=== PATIENT | male | born 1980 | race Caucasian/White ===

== ENCOUNTER 2017-07-28 21:21 | Inpatient (IN) | payer OTHER ==
[~2017-07-28] VITALS: Ht 167.6 cm; Wt 77.2 kg
[2017-07-28] MEDS ORDERED: SODIUM CHLORIDE 0.9% 1000ML 1,000 ML, SODIUM CHLORIDE 0.9% 1000ML 1,000 ML IV ONE (21:45)
[2017-07-28] MEDS ORDERED: PIPERACILLIN/TAZOBACTAM 4.5 GM/100ML D5W IV STA (21:45)
[2017-07-28] MEDS ORDERED: DAPTOMYCIN IV ONE (21:45)
[2017-07-28] MEDS ORDERED: SODIUM CHLORIDE 0.9% IV ONE (21:45)
[2017-07-28 22:38] LABS: HEMATOCRIT 34.2 % (42-52); HEMOGLOBIN 11.1 g/dL (14.0-18.0); MEAN CELL VOLUME 81.2 fL (80-100); MEAN CORPUSCULAR HEMOGLOBIN 26.4 pg (25-34); MEAN CORPUSCULAR HGB CONC 32.5 g/dl (32-36); MEAN PLATELET VOLUME 8.6 fL (7.4-10.4); PLATELET COUNT 535 K/uL (130-400); RED CELL DISTRIBUTION WIDTH CV 14.2 % (11.5-14.5); RED CELL DISTRIBUTION WIDTH SD 41.9 fL (36.4-46.3); WHITE BLOOD COUNT 15.42 K/uL (4.8-10.8)
[2017-07-28] MEDS ORDERED: IBUP-1050 PO (22:47)
--- NOTE | 2017-07-28 22:47 | DIAGNOSTIC IMAGING REPORT ---
CHEST ONE VIEW PORTABLE CLINICAL HISTORY: IVDA. Hemoptysis hemoptysis COMPARISON STUDY: No previous studies for comparison. FINDINGS: The bones soft tissues and hemidiaphragms are normal. The cardiomediastinal silhouette is normal. The lungs are clear. The pulmonary vasculature is normal. IMPRESSION: Negative chest. The above report was generated using voice recognition software. It may contain grammatical, syntax or spelling errors. Electronically signed by: London Palomo M.D. 07/28/2017 10:46 PM Dictated Date/Time: 07/28/2017 10:45 PM
--- NOTE | 2017-07-28 22:48 | DIAGNOSTIC IMAGING REPORT ---
R FOREARM 2 VIEWS ROUTINE CLINICAL HISTORY: IVDA to right arm with infection infection COMPARISON: None. DISCUSSION: The bones and joint spaces appear intact. There is no evidence of fracture, dislocation or bony disease. Mild soft tissue edema IMPRESSION: Mild soft tissue edema. No acute bony abnormality. The above report was generated using voice recognition software. It may contain grammatical, syntax or spelling errors. Electronically signed by: London Palomo M.D. 07/28/2017 10:47 PM Dictated Date/Time: 07/28/2017 10:46 PM
[2017-07-28 23:00] LABS: ALT/SGPT 36 U/L (12-78); AST/SGOT 23 U/L (15-37); BLOOD UREA NITROGEN 7 mg/dl (7-18); CALCIUM 8.5 mg/dl (8.5-10.1); CARBON DIOXIDE 27 mmol/L (21-32); CREATININE 0.89 mg/dl (0.60-1.40); GLUCOSE 142 mg/dl (70-99); LIPASE 74 U/L (73-393); POTASSIUM 3.8 mmol/L (3.5-5.1); SODIUM 136 mmol/L (136-145)
[2017-07-28 23:02] LABS: ALKALINE PHOSPHATASE 98 U/L (45-117); CKMB < 0.5 ng/ml (0.5-3.6)
[2017-07-28] MEDS ORDERED: OPTIRAY 320 IV PRN (23:15)
[2017-07-28] MEDS ORDERED: KETOROLAC TROMETHAMINE 30 MG/ML VIAL IV STA (23:56)
--- NOTE | 2017-07-29 00:26 | EMERGENCY ROOM VISIT NOTE ---
History First contact with patient: 21:37 Chief Complaint: OTHER COMPLAINT Stated Complaint: TROUBLE BREATHING,SPITTING BLOOD,INFECTED WOUND History of Present Illness The patient is a 37 year old male who presents to the Emergency Room with complaints of fever, abscess, and hemoptysis. The patient is an IV drug abuser , and reports that about 2 weeks ago he injected methamphetamine into his right forearm. He subsequently developed an abscess that he has been tending for at home. He states that he did drain the abscess, but continues to have redness and pain in this area. The patient started with fever 2 or 3 days ago, and today he is having chest pain and some scant hemoptysis. The patient does not report additional medical disease. Activity worsens symptoms. No recent travel history. He does not report abdominal pain or calf pain. He rates his overall discomfort a 9/10. Review of Systems More than 10 systems were reviewed and otherwise negative with the exception of history of present illness. Past Medical/Surgical History Medical Problems: (1) Abscess of arm, right IV drug abuse Family History No pertinent family history Social History Smoking Status: Never Smoker Drug Use: other Housing Status: lives with family Current/Historical Medications Scheduled Ibuprofen (Advil), 600 MG PO Q6H Physical Exam Vital Signs Date Time Temp Pulse Resp B/P (MAP) Pulse Ox O2 Delivery O2 Flow Rate FiO2 07/28/17 23:06 92 116/62 94 Room Air 07/28/17 21:50 96 Room Air 07/28/17 21:44 105 07/28/17 21:29 38.1 108 18 117/63 97 Room Air Physical Exam VITALS: Vitals are noted on the nurse's note and reviewed by myself. Vital signs with fever and tachycardia GENERAL: Moderate ill-appearing male who is overall cooperative with the examination NECK: Supple without nuchal rigidity. No lymphadenopathy. No thyromegaly. Cervical spine is nontender. HEART: Tachycardic rate with regular rhythm. No obvious murmurs appreciated LUNGS: Tachypneic without wheezing or rhonchi throughout MUSCULOSKELETAL: There is an area along the right volar forearm consistent with IV drug use and subsequent ulceration. This area is very indurated without gross purulence. There are 2 large open wounds each measuring about 2.0 cm in diameter here. No obvious lymphangitic streaking. Additionally in the left AC is a healing cellulitis without obvious abscess on exam. NEURO: Patient was alert and oriented to person place and time. CN II through XII grossly intact Medical Decision & Procedures ER Provider Diagnostic Interpretation: Preliminary Findings Only See Final Report For Complete Findings CTA CHEST: No evidence of pulmonary embolism or aortic dissection. Mild peribronchial thickening and nonspecific patchy ground glass densities. Tiny pulmonary nodules. No pneumothorax or pleural effusion. Mild esophageal wall thickening. Low density structure in the upper left kidney, query caliectasis. Small hepatic hypodensity in the region of the falciform ligament, incompletely imaged. CHEST ONE VIEW PORTABLE CLINICAL HISTORY: IVDA. Hemoptysis hemoptysis COMPARISON STUDY: No previous studies for comparison. FINDINGS: The bones soft tissues and hemidiaphragms are normal. The cardiomediastinal silhouette is normal. The lungs are clear. The pulmonary vasculature is normal. IMPRESSION: Negative chest. R FOREARM 2 VIEWS ROUTINE CLINICAL HISTORY: IVDA to right arm with infection infection COMPARISON: None. DISCUSSION: The bones and joint spaces appear intact. There is no evidence of fracture, dislocation or bony disease. Mild soft tissue edema IMPRESSION: Mild soft tissue edema. No acute bony abnormality. Laboratory Results Test 07/28/17 22:13 07/28/17 22:14 07/28/17 22:19 07/28/17 22:20 Prothrombin Time 11.0 SECONDS (9.0-12.0) Prothromb Time International Ratio 1.0 (0.9-1.1) Activated Partial Thromboplast Time 28.0 SECONDS (21.0-31.0) Partial Thromboplastin Ratio 1.1 Est Creatinine Clear Calc Drug Dose 109.6 ml/min Total Bilirubin 0.1 mg/dl (0.2-1) Aspartate Amino Transf (AST/SGOT) 23 U/L (15-37) Alanine Aminotransferase (ALT/SGPT) 36 U/L (12-78) Alkaline Phosphatase 98 U/L (45-117) Total Creatine Kinase 43 U/L (39-308) Creatine Kinase MB < 0.5 ng/ml (0.5-3.6) Creatine Kinase MB Ratio (0-3.0) C-Reactive Protein 2.31 mg/dl (0-0.29) Total Protein 8.0 gm/dl (6.4-8.2) Albumin 3.0 gm/dl (3.4-5.0) Globulin 5.0 gm/dl (2.5-4.0) Albumin/Globulin Ratio 0.6 (0.9-2) Lipase 74 U/L (73-393) Ethyl Alcohol mg/dL < 3.0 mg/dl (0-3) RDW Standard Deviation 41.9 fL (36.4-46.3) RDW Coefficient of Variation 14.2 % (11.5-14.5) White Blood Count 15.42 K/uL (4.8-10.8) Red Blood Count 4.21 M/uL (4.7-6.1) Hemoglobin 11.1 g/dL (14.0-18.0) Hematocrit 34.2 % (42-52) Mean Corpuscular Volume 81.2 fL (80-100) Mean Corpuscular Hemoglobin 26.4 pg (25-34) Mean Corpuscular Hemoglobin Concent 32.5 g/dl (32-36) Platelet Count 535 K/uL (130-400) Mean Platelet Volume 8.6 fL (7.4-10.4) Neutrophils % (Manual) 57.5 % Lymphocytes % (Manual) 28.7 % Monocytes % (Manual) 7.8 % Eosinophils % (Manual) 4.3 % Myelocytes % 1.7 % Neutrophils # (Manual) 8.87 K/uL (1.4-6.5) Total Absolute Neutrophils 8.87 K/uL (1.4-6.5) Lymphocytes # (Manual) 4.43 K/uL (1.2-3.4) Total Absolute Lymphocytes 4.43 K/uL (1.2-3.4) Monocytes # (Manual) 1.20 K/uL (0.11-0.59) Eosinophils # (Manual) 0.66 K/uL (0-0.5) Myelocytes # 0.26 K/uL (0-0) Erythrocyte Sedimentation Rate 72 mm/hr (0-14) Bedside Lactic Acid Venous 3.72 mmol/L (0.90-1.70) Bedside Troponin I < 0.030 ng/ml (0-0.045) Test 07/28/17 23:00 Urine Color YELLOW Urine Appearance CLEAR (CLEAR) Urine pH 5.0 (4.5-7.5) Urine Specific [place] 1.010 (1.000-1.030) Urine Protein NEG (NEG) Urine Glucose (UA) NEG (NEG) Urine Ketones NEG (NEG) Urine Occult Blood NEG (NEG) Urine Nitrite NEG (NEG) Urine Bilirubin NEG (NEG) Urine Urobilinogen NEG (NEG) Urine Leukocyte Esterase NEG (NEG) Urine Opiates Screen NEG (NEG) Urine Methadone, Qualitative NEG (NEG) Urine Barbiturates NEG (NEG) Urine Phencyclidine (PCP) Level NEG (NEG) Ur Amphetamine/Methamphetamine NEG (NEG) MDMA (Ecstasy) Screen NEG (NEG) Urine Benzodiazepines Screen NEG (NEG) Urine Cocaine Metabolite NEG (NEG) Urine Marijuana (THC) NEG (NEG) Medications Administered Medications (Trade) Dose Ordered Sig/Guido Route Start Time Stop Time Status Last Admin Dose Admin Sodium Chloride/ Sodium Chloride 2,000 ml @ 999 mls/hr Q2H1M ONCE IV 07/28/17 21:45 07/28/17 23:45 DC 07/28/17 22:30 999 MLS/HR Piperacillin Sod/ Tazobactam Sod (Zosyn Iv) 4.5 gm NOW STAT IV 07/28/17 21:45 07/28/17 21:51 DC 07/28/17 22:30 4.5 GM Daptomycin 469 mg/ Sodium Chloride 59.38 ml @ 100 mls/hr NOW ONCE IV 07/28/17 21:45 07/28/17 22:20 DC 07/28/17 23:01 100 MLS/HR Ketorolac Tromethamine (Toradol Inj) 30 mg NOW STAT IV 07/28/17 23:56 07/28/17 23:57 DC 07/29/17 00:04 30 MG Acetaminophen (Tylenol Tab) 650 mg Q4H PRN PO 07/29/17 01:00 08/28/17 00:59 07/29/17 02:43 650 MG ED Course Physical exam and history were performed. Nursing notes, EMR, and Medication List were personally reviewed. Patient appears to have a cellulitis of his arm and history of IV drug use. The patient is febrile and tachycardic here on arrival. He does have some coughing versus spitting up of bright red blood, raising concern for possible septic pulmonary emboli versus other etiology. IV access was established and labs were obtained. The patient was hydrated with 2 L normal saline. He was given daptomycin and Zosyn here in the department after blood cultures were gathered. Because of his symptoms I elected to perform a CT scan of his chest. He was placed on a plate glass installer helper. X-rays were additionally performed. The patient's blood work is as above and was reviewed. He does have an elevated white blood cell count of greater than 15,000. Additionally his lactic acid is elevated at 3.7 suggesting sirs versus sepsis. X-ray of his right forearm does not reveal foreign body or free air. CT scan of his chest does not reveal obvious pulmonary embolism or dissection. Troponin 1 is negative. Drug of abuse screen was negative. His inflammatory sed rate and CRP are both elevated. The patient did require Toradol for pain control here in the department. On reevaluation the patient had improvement of his pain. I discussed the case at length with my attending physician, Dr. Bolden, who remained involved in care and decision-making. Overall the patient does not appear stable for discharge home. He appears to be septic as well as having some hemoptysis of unknown etiology. The patient is also a drug abuser and will need surgical evaluation of his right forearm. There is also underlying concern for possible endocarditis, although his EKG and troponin are unremarkable. The case was discussed with the on-call hospitalist, Dr. Frost, who evaluated the patient here in the ER. Please see Dr. Ray's dictation for further patient course, plan, and disposition. The chart was completed utilizing [employer] Speech Voice Recognition Software. Grammatical errors, random word insertions, pronoun errors, and incomplete sentences are an occasional consequence of this system due to software limitations, ambient noise, and hardware issues. Any formal questions or concerns about the content, text, or information contained within the body of this dictation should be directly addressed to the provider for clarification. . Medical Decision Differential diagnosis: Etiologies such as sepsis, UTI, pneumonia, metabolic, electrolyte abnormalities , cardiac sources, intracerebral event, toxicologic, neurologic, as well as others were entertained. Impression Primary Impression: Sepsis Additional Impressions: Cellulitis of skin IVDU (intravenous drug user) Hemoptysis, unspecified Critical Care I have personally spent greater than 30 minutes of critical care time in the direct management of this patient. This includes bedside care, interpretation of diagnostic studies, and testing, discussion with consultants, patient, and family members, and other required patient management activities. This 30 minutes is in excess of all separately billable procedures. Departure Information Referrals No Doctor, Assigned (PCP) Patient Instructions My [facility] Problem Qualifiers
[2017-07-29] MEDS ORDERED: GLUCOSE 40% GEL 15 GM TUBE PO PRN (01:00)
[2017-07-29] MEDS ORDERED: POLYETHYLENE (MIRALAX) 17 GM PACK PO PRN (01:00)
[2017-07-29] MEDS ORDERED: ACETAMINOPHEN 325 MG TAB PO PRN (01:00)
[2017-07-29] MEDS ORDERED: MAGNESIUM HYDROXIDE SUSP 30 ML UDC PO PRN (01:00)
[2017-07-29] MEDS ORDERED: ALUMINUM/MAGNESIUM/SIMETH (MAALOX MAX) 30 ML UDC PO PRN (01:00)
[2017-07-29] MEDS ORDERED: GLUCAGON FOR INJ 1 MG VIAL SQ PRN (01:00)
[2017-07-29] MEDS ORDERED: ONDANSETRON INJ 2 MG/ML 2 ML VIAL IV PRN (01:00)
[2017-07-29] MEDS ORDERED: DEXTROSE 50% 50 ML SYR IV PRN (01:00)
[2017-07-29] MEDS ORDERED: ZOLPIDEM TARTRATE 5 MG TAB PO PRN (01:00)
[2017-07-29] MEDS ORDERED: GLUCOSE 10 TABS/TUBE PO PRN (01:00)
[2017-07-29] MEDS ORDERED: PIPERACILL/TAZOBAC CONSULT ACTIVE PRN (01:30)
[2017-07-29] MEDS ORDERED: VANCOMYCIN CONSULT ACTIVE PRN (01:30)
--- NOTE | 2017-07-29 01:49 | Pharmacy Progress Note ---
Pharmacy Abx Initial Consult Date of Service Jul 29, 2017. Pharmacy Dosing Scope Date of Consult: 07/29/17 Consultation requested by: Dr. Frost Pharmacy is consulted to initiate vancomycin and Zosyn IV dosing therapy, order appropriate labs and adjust drug dose/frequency. Subjective The patient is a 37 year old male admitted on Jul 29, 2017 at 01:04 with arm abscess. Objective Height (Feet): 5 Height (Inches): 6.00 Weight (Kilograms): 78.200 Vital Signs (Past 12Hrs) Vital Signs Past 12 Hours Date Time Temp Pulse Resp B/P (MAP) Pulse Ox O2 Delivery O2 Flow Rate FiO2 07/29/17 01:30 68 18 104/58 98 Room Air 07/28/17 23:06 92 116/62 94 Room Air 07/28/17 21:50 96 Room Air 07/28/17 21:44 105 07/28/17 21:29 38.1 108 18 117/63 97 Room Air Lab Results (24Hrs) Laboratory Tests (24 Hours) Test 07/28/17 22:13 07/28/17 22:14 C-Reactive Protein 2.31 mg/dl (0-0.29) H Total Creatine Kinase 43 U/L (39-308) Erythrocyte Sedimentation Rate 72 mm/hr (0-14) H White Blood Count 15.42 K/uL (4.8-10.8) H Red Blood Count 4.21 M/uL (4.7-6.1) L Hemoglobin 11.1 g/dL (14.0-18.0) L Hematocrit 34.2 % (42-52) L Mean Corpuscular Volume 81.2 fL (80-100) Mean Corpuscular Hemoglobin 26.4 pg (25-34) Mean Corpuscular Hemoglobin Concent 32.5 g/dl (32-36) Platelet Count 535 K/uL (130-400) H Mean Platelet Volume 8.6 fL (7.4-10.4) Micro Results Date/Time Source Procedure Growth Status 07/28/17 22:13 Blood Blood Culture Pending Received 07/28/17 22:10 Blood Blood Culture Pending Received Risk Factors for Resistance * IV drug user which lends itself to risk for MRSA Assessment & Plan Assessment 37 year old male with an insignificant PMH admitted after injecting drugs into his arm 2 weeks ago with a subsequent development of a purulent abscess. Patient states he vomited blood yesterday and was feverish. Plan vancomycin/Zosyn for treatment of arm abscess in the setting of an IV drug user Vancomycin IV * Loading dose: 1500 mg (19 mg/kg) * Maintenance dose: 1250 mg IV (15 mg/kg) every 8 hours (population pharmacokinetics suggest a half-life of 8 hours. Due to lower load, gave maintenance dose slightly sooner than indicated) * Goal trough level for abscess : ~15 mcg/mL * Trough ordered for 07/30/17 prior to 0800 dose Piperacillin/tazobactam * 4.5 g bolus administered over 30 minutes, then 3.375 g IV extended infusion every 8 hours for CrCl greater than 20 mL/min Pharmacy will continue to follow and will adjust dose/frequency as necessary. Thank you.
--- NOTE | 2017-07-29 01:54 | History and Physical ---
History & Physical Date & Time of Service: Jul 29, 2017 at 01:28 Chief Complaint: Trouble Breathing,Spitting Blood,Infected Wound Primary Care Physician: No Doctor, Assigned History of Present Illness Source: patient 37 y/o M Hx IV methamphetamine use. Pt developed abscesses on his antecubital regions bilaterally over the past week at drug injection sites. He apparently drained the abscess on the R forearm himself although this did not have the desired effect. The pt then developed SOB, fevers and hemoptysis over the past 2 days. He denies a cough and states that he just feels like fluid is building up in the back of his throat which he needs to spit out. Indeed, he was spitting up small amounts of blood at the time of admission, although it was not entirely clear, due to lack of cough, if the source was his lungs. The pt was febrile on arrival to the ER with a temp of 38.1. A CTA was obtained in the ER. A preliminary read describes nonspecific patchy BL densities and no PE. Initial labs are notable for leukocytosis and an elevated lactic acid. Past Medical/Surgical History 1) Osteoarthritis of hips 2) Lyme disease 3) IV Methamphetamine use Family History States both parents are alive and well Social History Chew tobacco States that he has been dependent on Methamphetamine and frequently injects - he recently had a 6 month hiatus and then resumed use due to family deaths. He denies excessive alcohol intake or any additional drug use. He has been on disability for 6 years. He states that this is due to Lyme disease and resultant arthritis in his hips. Smoking Status: Never Smoker Smokeless Tobacco Use: Yes Drug Use: other (IV Methamphetamine) Allergies Coded Allergies: Sulfa Antibiotics (Verified Allergy, Unknown, EYES SWELL, 07/28/17) Home Medications Scheduled Ibuprofen (Advil), 600 MG PO Q6H Review of Systems Constitutional: + fever, + chills, + sweats Eyes: No worsening of vision ENT: No hearing loss, No nasal symptoms Respiratory: + shortness of breath, + dyspnea on exertion, + dyspnea at rest, + hemoptysis, No cough, No sputum, No wheezing Cardiovascular: No chest pain, No orthopnea, No PND Abdomen: No pain, No nausea, No vomiting Musculoskeletal: + joint pain (Pain at abscess sites - BL antecubital) Genitourinary - Male: No hematuria, No dysuria, No urinary frequency Neurologic: No memory loss, No paralysis, No weakness Psychiatric: No depression symptoms Endocrine: No fatigue Hematologic / Lymphatic: No abnormal bleeding/bruising Integumentary: + problem reported (Abscess on R forearm and L antecubital), No rash Allergic / Immunologic: No environmental allergies Physical Exam Vital Signs Date Time Temp Pulse Resp B/P (MAP) Pulse Ox O2 Delivery O2 Flow Rate FiO2 07/28/17 23:06 92 116/62 94 Room Air 07/28/17 21:50 96 Room Air 07/28/17 21:44 105 07/28/17 21:29 38.1 108 18 117/63 97 Room Air General Appearance: WD/WN, no apparent distress, + pertinent finding (Average weight, young male, spitting small amounts of blood - no distress) Head: normocephalic Eyes: normal inspection ENT: normal ENT inspection, pharynx normal Neck: no JVD Respiratory/Chest: chest non-tender, lungs clear, normal breath sounds Cardiovascular: regular rate, rhythm, no edema, no gallop Abdomen/GI: normal bowel sounds, non tender, soft Back: normal inspection, no CVA tenderness Extremities/Musculoskelatal: normal inspection, no calf tenderness, normal capillary refill Neurologic/Psych: traffic administrator II-XII nml as tested, no motor/sensory deficits, alert, oriented x 3 Skin: normal color Diagnostics Laboratory Results Results Past 24 Hours Test 07/28/17 22:13 07/28/17 22:14 07/28/17 22:19 07/28/17 22:20 Range/Units Prothrombin Time 11.0 9.0-12.0 SECONDS Prothromb Time International Ratio 1.0 0.9-1.1 Activated Partial Thromboplast Time 28.0 21.0-31.0 SECONDS Partial Thromboplastin Ratio 1.1 Sodium Level 136 136-145 mmol/L Potassium Level 3.8 3.5-5.1 mmol/L Chloride Level 100 98-107 mmol/L Carbon Dioxide Level 27 21-32 mmol/L Anion Gap 9.0 3-11 mmol/L Blood Urea Nitrogen 7 7-18 mg/dl Creatinine 0.89 0.60-1.40 mg/dl Est Creatinine Clear Calc Drug Dose 109.6 ml/min Estimated GFR () 124.8 Estimated GFR (Non- 107.7 BUN/Creatinine Ratio 7.9 10-20 Random Glucose 142 70-99 mg/dl Calcium Level 8.5 8.5-10.1 mg/dl Magnesium Level 2.1 1.8-2.4 mg/dl Total Bilirubin 0.1 0.2-1 mg/dl Aspartate Amino Transf (AST/SGOT) 23 15-37 U/L Alanine Aminotransferase (ALT/SGPT) 36 12-78 U/L Alkaline Phosphatase 98 45-117 U/L Total Creatine Kinase 43 39-308 U/L Creatine Kinase MB < 0.5 0.5-3.6 ng/ml Creatine Kinase MB Ratio 0-3.0 C-Reactive Protein 2.31 0-0.29 mg/dl Total Protein 8.0 6.4-8.2 gm/dl Albumin 3.0 3.4-5.0 gm/dl Globulin 5.0 2.5-4.0 gm/dl Albumin/Globulin Ratio 0.6 0.9-2 Lipase 74 73-393 U/L Ethyl Alcohol mg/dL < 3.0 0-3 mg/dl White Blood Count 15.42 4.8-10.8 K/uL Red Blood Count 4.21 4.7-6.1 M/uL Hemoglobin 11.1 14.0-18.0 g/dL Hematocrit 34.2 42-52 % Mean Corpuscular Volume 81.2 80-100 fL Mean Corpuscular Hemoglobin 26.4 25-34 pg Mean Corpuscular Hemoglobin Concent 32.5 32-36 g/dl Platelet Count 535 130-400 K/uL Mean Platelet Volume 8.6 7.4-10.4 fL RDW Standard Deviation 41.9 36.4-46.3 fL RDW Coefficient of Variation 14.2 11.5-14.5 % Neutrophils % (Manual) 57.5 % Lymphocytes % (Manual) 28.7 % Monocytes % (Manual) 7.8 % Eosinophils % (Manual) 4.3 % Myelocytes % 1.7 % Neutrophils # (Manual) 8.87 1.4-6.5 K/uL Total Absolute Neutrophils 8.87 1.4-6.5 K/uL Lymphocytes # (Manual) 4.43 1.2-3.4 K/uL Total Absolute Lymphocytes 4.43 1.2-3.4 K/uL Monocytes # (Manual) 1.20 0.11-0.59 K/uL Eosinophils # (Manual) 0.66 0-0.5 K/uL Myelocytes # 0.26 0-0 K/uL Erythrocyte Sedimentation Rate 72 0-14 mm/hr Bedside Lactic Acid Venous 3.72 0.90-1.70 mmol/L Bedside Troponin I < 0.030 0-0.045 ng/ml Test 07/28/17 23:00 Range/Units Urine Color YELLOW Urine Appearance CLEAR CLEAR Urine pH 5.0 4.5-7.5 Urine Specific [place] 1.010 1.000-1.030 Urine Protein NEG NEG Urine Glucose (UA) NEG NEG Urine Ketones NEG NEG Urine Occult Blood NEG NEG Urine Nitrite NEG NEG Urine Bilirubin NEG NEG Urine Urobilinogen NEG NEG Urine Leukocyte Esterase NEG NEG Urine Opiates Screen NEG NEG Urine Methadone, Qualitative NEG NEG Urine Barbiturates NEG NEG Urine Phencyclidine (PCP) Level NEG NEG Ur Amphetamine/Methamphetamine NEG NEG MDMA (Ecstasy) Screen NEG NEG Urine Benzodiazepines Screen NEG NEG Urine Cocaine Metabolite NEG NEG Urine Marijuana (THC) NEG NEG Microbiology Results 07/28/17 Blood Culture, Received Pending 07/28/17 Blood Culture, Received Pending Diagnostic Radiology CTA: BL nonspecific patchy densities - no PE Impression Assessment and Plan 37 y/o M Hx IV methamphetamine use. Pt developed abscesses on his antecubital regions bilaterally over the past week at drug injection sites. He apparently drained the abscess on the R forearm himself although this did not have the desired effect. The pt then developed SOB, fevers and hemoptysis over the past 2 days. He denies a cough and states that he just feels like fluid is building up in the back of his throat which he needs to spit out. Indeed, he was spitting up small amounts of blood at the time of admission, although it was not entirely clear, due to lack of cough, if the source was his lungs. The pt was febrile on arrival to the ER with a temp of 38.1. A CTA was obtained in the ER. A preliminary read describes nonspecific patchy BL densities and no PE. Initial labs are notable for leukocytosis and an elevated lactic acid. 1) Abscesses, fevers - provided with Dapto and Zosyn in the ER pending cultures. General surgery consult requested although they may choose to defer to ortho. Due to IVDU and multiple potential foci of infection, we will obtain an echo as well. 2) Hemoptysis - we have consulted pulmonary. There is obvious concern for septic seeding as a result of IVDU. We will change Dapto to Vanc as Dapto does not have activity against PNM. The pt is additionally at risk of an esophageal lesion due to long-term chewing tobacco use. If a pulmonary source of bleeding is ruled out we should consult GI. 3) Methamphetamine use - unlikely to exhibit withdrawal - we can provide Benzodiazepines if needed. Full code - SCDs due to hemoptysis Total time for this admit including review of labs, meds, imaging, records - discussion with pt and ER attending Resuscitation Status VTE Prophylaxis Will order VTE Prophylaxis: Yes
[2017-07-29] MEDS ORDERED: VANCOMYCIN IV 1,500 MG in SODIUM CHLORIDE 0.9% 500ML 500 ML IV ONE (02:00)
[2017-07-29] MEDS: NSS + 20MEQ KCL 1000ML 1,000 ML IV SCH ×2 (02:47→08:39)
[2017-07-29 04:15] VITALS: BP 137/75; PULSE 80; TEMP 36.9; O2SAT 97; Ht 167.6 cm; Wt 77.2 kg
[2017-07-29 04:58] LABS: CALCIUM 7.9 mg/dl (8.5-10.1); CREATININE 0.68 mg/dl (0.60-1.40); POTASSIUM 4.6 mmol/L (3.5-5.1)
[2017-07-29] MEDS: PIPERACILL/TAZOBAC IV 3.375 GM in DEXTROSE 5% 100ML 100 ML IV SCH ×3 (05:47→19:57)
--- NOTE | 2017-07-29 07:00 | DIAGNOSTIC IMAGING REPORT ---
(CHEST FOR PE) ANGIO WITH CT DOSE: 340.09 mGy.cm HISTORY: 37 years-old Male with acute hemoptysis with history of IV drug abuse. TECHNIQUE: Multiple CTA images of the chest were obtained after the intravenous administration of 103 ml Optiray 320. Coronal and sagittal MIPS were obtained from the axial data set and were submitted for review. A dose lowering technique was utilized adhering to the principles of ALARA. COMPARISON: Chest radiograph of same day FINDINGS: CTA: Heart is normal in size without pericardial effusion. Thoracic aorta is normal in course and caliber without aneurysm or dissection. Imaged great vessels appear to be patent. The pulmonary arterial tree is opacified to level of the distal segmental branches and demonstrates no focal filling defects to suggest pulmonary thromboembolic disease. CT CHEST: Thyroid is homogeneous. No pathologic adenopathy of the chest identified. There is no pneumothorax or pleural effusion. Minimal dependent subsegmental bibasilar atelectasis. Calcified granulomas are seen within the inferior segment lingula. Central airways are patent. There is minimal right basilar bronchial wall thickening. No acute abnormality of the imaged upper abdomen. Partially imaged low-attenuation within the region of the renal sinus on the left suggests caliectasis or renal sinus cysts. No left perinephric inflammatory stranding. Ill-defined area of low attenuation near the falciform ligament may reflect focal fatty infiltration. Soft tissues are unremarkable. Bones appear intact. IMPRESSION: 1. No acute aortic pathology or evidence of pulmonary thromboembolic disease. 2. Minimal bibasilar bronchial wall thickening suggests bronchitis. No lobar airspace consolidation to suggest pneumonia. 3. No pathologic adenopathy. 4. Partially imaged low-attenuation within the region of the renal sinus on the left suggests caliectasis or renal sinus cysts. The above report was generated using voice recognition software. It may contain grammatical, syntax or spelling errors. Electronically signed by: Manuel Treviño M.D. 07/29/2017 6:58 AM Dictated Date/Time: 07/29/2017 6:48 AM
[2017-07-29 07:22] VITALS: BP 119/70; PULSE 68; TEMP 36.9; O2SAT 94
--- NOTE | 2017-07-29 07:26 | Surgery Consultation ---
Consultation Date of Consultation: Jul 29, 2017. Attending Physician: Bigg Frost M.D. Reason for Consultation: B/L forearm abscesses History of Present Illness 37M with Hx of IVDU (methamphetamine) presented to the ED last night due to abscesses on his right anterior forearm and left anterior antecubital region. States He first noticed redness and swelling on his right forearm about 2.5 weeks ago and noticed redness and swelling on his left arm approximately 4 days ago. Reports that he attempted to drain the abscess on his left forearm. States he was able to remove pus and his washed it out with soap and water. States he has also felt SOB over the past few days with walking and talking. He has also been experiencing some fever/chills and he has been spitting up blood the past few days as well. He does have a history of chewing tobacco use for as long as he can remember. Reports he has only been using IV drugs for approximately 1 year and has been off them since November until recently due to the passing of his son. Lactic acid was elevated on his initial labs but has since normalized. WBC 15.42. Repeat labs pending this AM. Currently his pain is controlled. He reports no fever/chills at this time. Past Medical/Surgical History Medical Problems: (1) Cellulitis of skin Status: Acute (2) Hemoptysis, unspecified Status: Acute (3) IVDU (intravenous drug user) Status: Acute (4) Sepsis Status: Acute Social History Smoking Status: Former Smoker Smokeless Tobacco Use: Yes Drug Use: other (IV Methamphetamine) Housing Status: lives with family Allergies Coded Allergies: Sulfa Antibiotics (Verified Allergy, Unknown, EYES SWELL, 07/28/17) Home Medications Scheduled Ibuprofen (Advil), 600 MG PO Q6H Current Inpatient Medications Current Inpatient Medications Medications (Trade) Dose Ordered Sig/Guido Route Start Time Stop Time Status Last Admin Dose Admin Ioversol (Optiray 320) 100 ml UD PRN IV 07/28/17 23:15 08/01/17 23:14 Acetaminophen (Tylenol Tab) 650 mg Q4H PRN PO 07/29/17 01:00 08/28/17 00:59 07/29/17 02:43 650 MG Al Hydrox/Mg Hydrox/Simethicone (Maalox Max Susp) 15 ml Q4H PRN PO 07/29/17 01:00 08/28/17 00:59 Magnesium Hydroxide (Milk Of Magnesia Susp) 30 ml Q6H PRN PO 07/29/17 01:00 08/28/17 00:59 Polyethylene (Miralax Powder Packet) 17 gm DAILY PRN PO 07/29/17 01:00 08/28/17 00:59 Zolpidem Tartrate (Ambien Tab) 5 mg HSZ PRN PO 07/29/17 01:00 08/28/17 00:59 Ondansetron HCl (Zofran Inj) 4 mg Q6H PRN IV 07/29/17 01:00 08/28/17 00:59 Glucose (Glucose 40% Gel) 15-30 GRAMS 15 GRAMS... UD PRN PO 07/29/17 01:00 08/28/17 00:59 Glucose (Glucose Chew Tab) 4-8 Tablets 4 Tabl... UD PRN PO 07/29/17 01:00 08/28/17 00:59 Dextrose (Dextrose 50% 50ML Syringe) 25-50ML OF 50% DW IV FOR... UD PRN IV 07/29/17 01:00 08/28/17 00:59 Glucagon (Glucagon Inj) 1 mg UD PRN SQ 07/29/17 01:00 08/28/17 00:59 Vancomycin HCl 1250 mg/Sodium Chloride 275 ml @ 125 mls/hr Q8H IV 07/29/17 08:00 08/05/17 07:59 Miscellaneous Information (Consult) 1 ea UD PRN N/A 07/29/17 01:30 08/28/17 01:29 Piperacillin Sod/ Tazobactam Sod 3.375 gm/Dextrose 115 ml @ 28.75 mls/ hr Q8H IV 07/29/17 04:00 08/05/17 05:59 07/29/17 05:47 28.75 MLS/HR Miscellaneous Information (Consult) 1 ea UD PRN N/A 07/29/17 01:30 08/28/17 01:29 Potassium Chloride/Sodium Chloride 1,000 ml @ 150 mls/hr Q6H40M IV 07/29/17 02:30 07/29/17 15:49 07/29/17 02:47 150 MLS/HR Influenza Virus Vaccine Quadrival (Flucelvax Quad Vaccine) 0.5 ml ONCE ONCE IM. 07/29/17 08:00 07/29/17 08:01 Physical Exam Date Time Temp Pulse Resp B/P (MAP) Pulse Ox O2 Delivery O2 Flow Rate FiO2 07/29/17 04:15 36.9 80 18 137/75 97 Room Air 07/29/17 01:30 68 18 104/58 98 Room Air 07/29/17 01:27 74 07/28/17 23:06 92 116/62 94 Room Air 07/28/17 21:50 96 Room Air 07/28/17 21:44 105 07/28/17 21:29 38.1 108 18 117/63 97 Room Air General Appearance: WD/WN, no apparent distress Head: normocephalic, atraumatic ENT: hearing grossly normal Neck: trachea midline Respiratory/Chest: no respiratory distress, no accessory muscle use Extremities/Musculoskelatal: + pertinent finding (Right forearm open wound with what appears to be some fat necrosis with surrounding erythema and swelling. Left erythematous and swollen area in antecubital region. No palpable collection of fluid appreciated on exam at either site. ) Neurologic/Psych: alert, normal mood/affect, oriented x 3 Skin: normal color, warm/dry Laboratory Results Last 24 Hours Test 07/28/17 22:13 07/28/17 22:14 07/28/17 22:19 07/28/17 22:20 Prothrombin Time 11.0 SECONDS Prothromb Time International Ratio 1.0 Activated Partial Thromboplast Time 28.0 SECONDS Partial Thromboplastin Ratio 1.1 Sodium Level 136 mmol/L Potassium Level 3.8 mmol/L Chloride Level 100 mmol/L Carbon Dioxide Level 27 mmol/L Anion Gap 9.0 mmol/L Blood Urea Nitrogen 7 mg/dl Creatinine 0.89 mg/dl Est Creatinine Clear Calc Drug Dose 109.6 ml/min Estimated GFR () 124.8 Estimated GFR (Non- 107.7 BUN/Creatinine Ratio 7.9 Random Glucose 142 mg/dl Calcium Level 8.5 mg/dl Magnesium Level 2.1 mg/dl Total Bilirubin 0.1 mg/dl Aspartate Amino Transf (AST/SGOT) 23 U/L Alanine Aminotransferase (ALT/SGPT) 36 U/L Alkaline Phosphatase 98 U/L Total Creatine Kinase 43 U/L Creatine Kinase MB < 0.5 ng/ml Creatine Kinase MB Ratio C-Reactive Protein 2.31 mg/dl Total Protein 8.0 gm/dl Albumin 3.0 gm/dl Globulin 5.0 gm/dl Albumin/Globulin Ratio 0.6 Lipase 74 U/L Ethyl Alcohol mg/dL < 3.0 mg/dl White Blood Count 15.42 K/uL Red Blood Count 4.21 M/uL Hemoglobin 11.1 g/dL Hematocrit 34.2 % Mean Corpuscular Volume 81.2 fL Mean Corpuscular Hemoglobin 26.4 pg Mean Corpuscular Hemoglobin Concent 32.5 g/dl Platelet Count 535 K/uL Mean Platelet Volume 8.6 fL RDW Standard Deviation 41.9 fL RDW Coefficient of Variation 14.2 % Neutrophils % (Manual) 57.5 % Lymphocytes % (Manual) 28.7 % Monocytes % (Manual) 7.8 % Eosinophils % (Manual) 4.3 % Myelocytes % 1.7 % Neutrophils # (Manual) 8.87 K/uL Total Absolute Neutrophils 8.87 K/uL Lymphocytes # (Manual) 4.43 K/uL Total Absolute Lymphocytes 4.43 K/uL Monocytes # (Manual) 1.20 K/uL Eosinophils # (Manual) 0.66 K/uL Myelocytes # 0.26 K/uL Erythrocyte Sedimentation Rate 72 mm/hr Bedside Lactic Acid Venous 3.72 mmol/L Bedside Troponin I < 0.030 ng/ml Test 07/28/17 23:00 07/29/17 04:25 07/29/17 04:32 07/29/17 04:47 Urine Color YELLOW Urine Appearance CLEAR Urine pH 5.0 Urine Specific [place] 1.010 Urine Protein NEG Urine Glucose (UA) NEG Urine Ketones NEG Urine Occult Blood NEG Urine Nitrite NEG Urine Bilirubin NEG Urine Urobilinogen NEG Urine Leukocyte Esterase NEG Urine Opiates Screen NEG Urine Methadone, Qualitative NEG Urine Barbiturates NEG Urine Phencyclidine (PCP) Level NEG Ur Amphetamine/Methamphetamine NEG MDMA (Ecstasy) Screen NEG Urine Benzodiazepines Screen NEG Urine Cocaine Metabolite NEG Urine Marijuana (THC) NEG Lactic Acid Level 1.6 mmol/L Sodium Level 139 mmol/L Potassium Level 4.6 mmol/L Chloride Level 107 mmol/L Carbon Dioxide Level 26 mmol/L Anion Gap 6.0 mmol/L Blood Urea Nitrogen 7 mg/dl Creatinine 0.68 mg/dl Est Creatinine Clear Calc Drug Dose 143.5 ml/min Estimated GFR () 139.4 Estimated GFR (Non- 120.3 BUN/Creatinine Ratio 10.1 Random Glucose 95 mg/dl Calcium Level 7.9 mg/dl Magnesium Level 2.2 mg/dl Assessment & Plan B/L forearm abscesses. Pain controlled, afebrile at this time. Will discuss findings with Dr. Barnhart. No palpable collections of fluid appreciated on exam at this time that would require I&D. Right forearm wound is open and may require local wound care and/or possible debridement. May consider further imaging if fluid collection is suspected. May consult ortho given the location of these infections and possible ewa involvement. Please contact with questions or concerns.
[2017-07-29] MEDS: VANCOMYCIN IV 1,250 MG in SODIUM CHLORIDE 0.9% 250ML 250 ML IV SCH ×2 (07:41→16:00)
[2017-07-29] MEDS ORDERED: INFLUENZA ADMINISTRATION CHARGE ONE (08:00)
[2017-07-29] MEDS ORDERED: INFLUENZA VIRUS QUAD VACCINE 0.5 ML SYR IM. ONE (08:00)
[2017-07-29 08:10] LABS: HEMATOCRIT 32.4 % (42-52); HEMOGLOBIN 10.4 g/dL (14.0-18.0); MEAN CELL VOLUME 81.4 fL (80-100); MEAN CORPUSCULAR HEMOGLOBIN 26.1 pg (25-34); MEAN PLATELET VOLUME 8.4 fL (7.4-10.4); PLATELET COUNT 446 K/uL (130-400); RED CELL DISTRIBUTION WIDTH CV 14.2 % (11.5-14.5); RED CELL DISTRIBUTION WIDTH SD 42.4 fL (36.4-46.3); WHITE BLOOD COUNT 14.17 K/uL (4.8-10.8)
[2017-07-29 08:26] LABS: MEAN CORPUSCULAR HGB CONC 32.1 g/dl (32-36)
--- NOTE | 2017-07-29 10:29 | Pulmonary Consultation ---
History General Date of Service: Jul 29, 2017. Stated Complaint: Abscess Of Arm, Right, Hemoptysis, Unspecified HPI The patient is a 37 year old male who presents to [facility] with complaints of Abscess Of Arm, Right, Hemoptysis, Unspecified. The patient' s primary care provider is No Doctor, Assigned. Chief complaint: Trouble breathing, spitting up blood, infected wound 37-year-old male complaining of fever, abscess and hemoptysis Patient is an IV drug abuser Reports about 2 weeks ago he injected methamphetamine into his right forearm --subsequently developed an abscess who is been tending for at home, did note he drain the abscess manually but continues to have redness and pain in the area Started experiencing fever 2-3 days ago with associated chest pain and scant hemoptysis Denies: Recent travel, TB exposure, abdominal pain, calf pain, Chief complaint: Hemoptysis 37-year-old gentleman admitted for right arm cellulitis possibly abscess and notable left arm cellulitis possible abscess as well. He noted yesterday at 4 PM after eating gummy bears and biting his tongue that he started to spit up blood. With this a chest x-ray and CT angiogram were performed and notably within normal limits. Patient denies any previous history of hemoptysis, fevers , chills, TB contacts, unintentional weight loss or B type symptoms at this time. Past medical history is significant for intermittent/chronic IV methamphetamine abuse. The patient notes he was free from IV drug use for at least 6-12 month window than recently lost his 24-year-old son and became depressed and used IV methamphetamines 2 weeks prior to his admission. He has had right upper arm cellulitis with fluctuance which she and his have been I&D at home. Treatment 1. Daptomycin and Zosyn 2. Song cultured 3. Toradol Workup WBC: 15K --- 14K Lactic acid: 3.7 Tox screen: Within normal limits ESR: 72 CRP: 2.31 CTA: No significant findings Chest x-ray: No significant finding PmHx: 1. IV drug abuse PsHx: None per the patient Family history Noncontributory per the patient Social history Tobacco: Never smoker IV drug use: Positive Social status: Was with this family Historian: patient, EMS Review of Systems Constitutional: reports: weakness Eyes: reports: no symptoms ENT: reports: no symptoms Cardiovascular: reports: no symptoms Respiratory: reports: no symptoms Gastrointestinal: reports: no symptoms Genitourinary - Male: reports: no symptoms Musculoskeletal: reports: no symptoms Integumentary: reports: no symptoms Neurologic: reports: no symptoms Psychiatric: reports: depression Endocrine: no symptoms Hematologic / Lymphatic: no symptoms Allergic / Immunologic: no symptoms Past Medical History Past Medical History: Please refer to HPI Past Surgical History: Please refer to HPI Family History Please refer to HPI Social History Please refer to HPI Hx Tobacco Use In Past Year?: Yes Smoking Status: Former Smoker Allergies Coded Allergies: Sulfa Antibiotics (Verified Allergy, Unknown, EYES SWELL, 07/28/17) Current Medications Reported Home Medications Medications Dose Route/Sig Max Daily Dose Days Date Category Advil (Ibuprofen) 200 Mg Tab 600 Mg PO Q6H 07/28/17 Reported Physical Physical Exam Vital Signs: Date Time Temp Pulse Resp B/P (MAP) Pulse Ox O2 Delivery O2 Flow Rate FiO2 07/29/17 07:22 36.9 68 20 119/70 (86) 94 Room Air 07/29/17 04:15 36.9 80 18 137/75 97 Room Air 07/29/17 01:30 68 18 104/58 98 Room Air 07/29/17 01:27 74 07/28/17 23:06 92 116/62 94 Room Air 07/28/17 21:50 96 Room Air 07/28/17 21:44 105 07/28/17 21:29 38.1 108 18 117/63 97 Room Air General Appearance: WELL-APPEARING, WD/WN, NO APPARENT DISTRESS Head: NORMOCEPHALIC Eyes: PERRLA, NO DISCHARGE, EOMI, SCLERAE NORMAL, CONJUNCTIVAE NORMAL, FUNDUSCOPIC EXAM NORMAL ENT: other (Notable tongue bite on the anterior portion left side of the tongue no active bleeding at this time) Neck: NORMAL RANGE OF MOTION, NO TENDERNESS, TRACHEA MIDLINE, NO STRIDOR Respiratory: BREATH SOUNDS NORMAL, CLEAR TO AUSCULTATION, CLEAR TO PERCUSSION, NO RESPIRATORY DISTRESS Cardiovasular: REGULAR RATE/RHYTHM, NORMAL S1S2, NO M/G/R, NO MURMUR, NO GALLOP Abdomen: NON TENDER, NORMAL BOWEL SOUNDS, NO REBOUND, NO MASSES, NO GUARDING Genitourinary - Male: EXTERNAL GENITALIA NORMAL Back: NORMAL INSPECTION, NO MIDLINE TENDERNESS, NO CVA TENDERNESS, NO PARAVERTEBRAL TTP Upper Extremities: other (Right upper extremity with erythema 2-3 open areas mild active weeping, left upper extremity with area of cellulitis approximately 4 cm x 1 and small area of subdermal fluctuance) Lower Extremities: NO EDEMA, NO DEFORMITY, NORMAL ROM Pulses: carotid (R) (2+), carotid (L) (2+), dorsalis pedis (R) (2+), dorsalis pedis (L) (2+) Neuro: ALERT, ORIENTED x 3, NORMAL MOTOR EXAM, NORMAL SENSATION, NORMAL CEREBELLAR EXAM Reflexes: biceps (R) (2+), bicpes (L) (2+) Babinski Testing: right (downgoing), left (downgoing) Psychiatric: NORMAL AFFECT, NO SUICIDAL IDEATION Diagnostics Labs Results Past 24 Hours Test 07/28/17 22:13 07/28/17 22:14 07/28/17 22:19 07/28/17 22:20 Range/Units Prothrombin Time 11.0 9.0-12.0 SECONDS Prothromb Time International Ratio 1.0 0.9-1.1 Activated Partial Thromboplast Time 28.0 21.0-31.0 SECONDS Partial Thromboplastin Ratio 1.1 Sodium Level 136 136-145 mmol/L Potassium Level 3.8 3.5-5.1 mmol/L Chloride Level 100 98-107 mmol/L Carbon Dioxide Level 27 21-32 mmol/L Anion Gap 9.0 3-11 mmol/L Blood Urea Nitrogen 7 7-18 mg/dl Creatinine 0.89 0.60-1.40 mg/dl Est Creatinine Clear Calc Drug Dose 109.6 ml/min Estimated GFR () 124.8 Estimated GFR (Non- 107.7 BUN/Creatinine Ratio 7.9 10-20 Random Glucose 142 70-99 mg/dl Calcium Level 8.5 8.5-10.1 mg/dl Magnesium Level 2.1 1.8-2.4 mg/dl Total Bilirubin 0.1 0.2-1 mg/dl Aspartate Amino Transf (AST/SGOT) 23 15-37 U/L Alanine Aminotransferase (ALT/SGPT) 36 12-78 U/L Alkaline Phosphatase 98 45-117 U/L Total Creatine Kinase 43 39-308 U/L Creatine Kinase MB < 0.5 0.5-3.6 ng/ml Creatine Kinase MB Ratio 0-3.0 C-Reactive Protein 2.31 0-0.29 mg/dl Total Protein 8.0 6.4-8.2 gm/dl Albumin 3.0 3.4-5.0 gm/dl Globulin 5.0 2.5-4.0 gm/dl Albumin/Globulin Ratio 0.6 0.9-2 Lipase 74 73-393 U/L Ethyl Alcohol mg/dL < 3.0 0-3 mg/dl White Blood Count 15.42 4.8-10.8 K/uL Red Blood Count 4.21 4.7-6.1 M/uL Hemoglobin 11.1 14.0-18.0 g/dL Hematocrit 34.2 42-52 % Mean Corpuscular Volume 81.2 80-100 fL Mean Corpuscular Hemoglobin 26.4 25-34 pg Mean Corpuscular Hemoglobin Concent 32.5 32-36 g/dl Platelet Count 535 130-400 K/uL Mean Platelet Volume 8.6 7.4-10.4 fL RDW Standard Deviation 41.9 36.4-46.3 fL RDW Coefficient of Variation 14.2 11.5-14.5 % Neutrophils % (Manual) 57.5 % Lymphocytes % (Manual) 28.7 % Monocytes % (Manual) 7.8 % Eosinophils % (Manual) 4.3 % Myelocytes % 1.7 % Neutrophils # (Manual) 8.87 1.4-6.5 K/uL Total Absolute Neutrophils 8.87 1.4-6.5 K/uL Lymphocytes # (Manual) 4.43 1.2-3.4 K/uL Total Absolute Lymphocytes 4.43 1.2-3.4 K/uL Monocytes # (Manual) 1.20 0.11-0.59 K/uL Eosinophils # (Manual) 0.66 0-0.5 K/uL Myelocytes # 0.26 0-0 K/uL Erythrocyte Sedimentation Rate 72 0-14 mm/hr Bedside Lactic Acid Venous 3.72 0.90-1.70 mmol/L Bedside Troponin I < 0.030 0-0.045 ng/ml Test 07/28/17 23:00 07/29/17 04:25 07/29/17 04:32 07/29/17 07:50 Range/Units Urine Color YELLOW Urine Appearance CLEAR CLEAR Urine pH 5.0 4.5-7.5 Urine Specific [place] 1.010 1.000-1.030 Urine Protein NEG NEG Urine Glucose (UA) NEG NEG Urine Ketones NEG NEG Urine Occult Blood NEG NEG Urine Nitrite NEG NEG Urine Bilirubin NEG NEG Urine Urobilinogen NEG NEG Urine Leukocyte Esterase NEG NEG Urine Opiates Screen NEG NEG Urine Methadone, Qualitative NEG NEG Urine Barbiturates NEG NEG Urine Phencyclidine (PCP) Level NEG NEG Ur Amphetamine/Methamphetamine NEG NEG MDMA (Ecstasy) Screen NEG NEG Urine Benzodiazepines Screen NEG NEG Urine Cocaine Metabolite NEG NEG Urine Marijuana (THC) NEG NEG Lactic Acid Level 1.6 0.4-2.0 mmol/L Sodium Level 139 136-145 mmol/L Potassium Level 4.6 3.5-5.1 mmol/L Chloride Level 107 98-107 mmol/L Carbon Dioxide Level 26 21-32 mmol/L Anion Gap 6.0 3-11 mmol/L Blood Urea Nitrogen 7 7-18 mg/dl Creatinine 0.68 0.60-1.40 mg/dl Est Creatinine Clear Calc Drug Dose 143.5 ml/min Estimated GFR () 139.4 Estimated GFR (Non- 120.3 BUN/Creatinine Ratio 10.1 10-20 Random Glucose 95 70-99 mg/dl Calcium Level 7.9 8.5-10.1 mg/dl Magnesium Level 2.2 1.8-2.4 mg/dl White Blood Count 14.17 4.8-10.8 K/uL Red Blood Count 3.98 4.7-6.1 M/uL Hemoglobin 10.4 14.0-18.0 g/dL Hematocrit 32.4 42-52 % Mean Corpuscular Volume 81.4 80-100 fL Mean Corpuscular Hemoglobin 26.1 25-34 pg Mean Corpuscular Hemoglobin Concent 32.1 32-36 g/dl RDW Standard Deviation 42.4 36.4-46.3 fL RDW Coefficient of Variation 14.2 11.5-14.5 % Platelet Count 446 130-400 K/uL Mean Platelet Volume 8.4 7.4-10.4 fL Microbiology Results 07/28/17 Blood Culture, Received Pending 07/28/17 Blood Culture, Received Pending Diagnostic Radiology Please refer to HPI EKG Interpretation: NORMAL EKG Impression Assessment and Plan 37-year-old male admitted with bilateral upper extremity abscesses/cellulitis: 1. Abscesses: At this time surgery is currently involved with the patient's care. Patient is also currently on broad-spectrum antibiotics and performing well. 2. Hemoptysis: Patient has no history of hemoptysis, history of mechanical injury to his tongue and his chest x-ray as well as CT and physical exam show no signs of etiology other than the tongue for hemoptysis/bloody sputum. This time I think the patient's most likely etiology is his tongue lesion there is no active bleeding and I do not believe any further workup is necessary at this time. I did talk to the patient and have hi let the staff know if there is any new hemoptysis and at that time I do believe bronchoscopy would be warranted. Signoff: Pulmonary team will sign off at this time please recontact team if the patient's clinical course changes.
[2017-07-29] MEDS ORDERED: NURSING VERBAL MED ORDER ONE (11:00)
[2017-07-29] MEDS: KETOROLAC TROMETHAMINE 30 MG/ML VIAL IV. PRN ×2 (11:17→17:51)
[2017-07-29] MEDS: COLLAGENASE OINT 30 GM TUBE EXT SCH ×2 (11:24→19:40)
[2017-07-29 15:11] VITALS: BP 114/68; PULSE 73; TEMP 36.7; O2SAT 97
--- NOTE | 2017-07-29 16:37 | ECHOCARDIOGRAM REPORT ---
*NOTICE TO RECEIVING DEMOCRAT AGENCY This information is strictly Confidential and protected under [place] law. [place] law prohibits you from making any further disclosure of this information unless further disclosure is expressly permitted by the written consent of the person to whom it pertains or is authorized by law. A general authorization for the release of medical or other information is not sufficient for this purpose. Hospital accepts no responsibility if the information is made available to any other person, INCLUDING THE PATIENT. Interpretation Summary * Name: KALA HOWARD Study Date: 07/29/2017 06:40 AM BP: 137/75 mmHg * Patient Location: [facility]\S\N286\S\2 HR: 80 * : 1980 (M/d/yyyy) Gender: Male Height: 66 in * Age: 37 yrs Ethnicity: CA Weight: 172 lb * Ordering Physician: Bigg Frost * Referring Physician: Self, Referred * Performed By: Melanie Pickering RDCS * * Reason For Study: Endocarditis * BSA: 1.9 m2 * -- Conclusions -- * 1. Normal left ventricular size with low-normal systolic function. Estimated EF 55%. No regional wall motion abnormalities. No left ventricular hypertrophy. No significant diastolic dysfunction. * 2. No significant valvular abnormalities. * 3. No prior study available for comparison. Procedure Details * A complete two-dimensional transthoracic echocardiogram was performed (2D, M-mode, Doppler and color flow Doppler). Left Ventricle * Normal left ventricular size and low-normal systolic function. Estimated EF 55%. No regional wall motion abnormalities. No left ventricular hypertrophy. No significant diastolic dysfunction. Right Ventricle * The right ventricle is normal in size and function. * The right ventricular systolic function is normal as assessed by tricuspid annular plane systolic excursion (TAPSE) (normal >1.5 cm). Atria * The left atrial size is normal. * Right atrial size is normal. * There is no evidence of atrial septal defect, but resolution does not allow assessment for a patent foramen ovale. Mitral Valve * The mitral valve leaflets appear normal. There is no evidence of stenosis, fluttering, or prolapse. * There is trace mitral regurgitation. Tricuspid Valve * The tricuspid valve is not well visualized, but is grossly normal. * There is no tricuspid stenosis. * There is trace tricuspid regurgitation. Aortic Valve * The aortic valve is trileaflet. * No hemodynamically significant valvular aortic stenosis. * No aortic regurgitation is present. Pulmonic Valve * The pulmonary valve is inadequately visualized, but the Doppler data is adequate for interpretation. * There is no pulmonic valvular stenosis. * Trace pulmonic valvular regurgitation. Great Vessels * The aortic root is normal size. * Ascending aorta of normal dimension * Aortic arch of normal dimension. Pericardium/Pleural * There is no pericardial effusion. Great Vessels * Normal inferior vena cava size and collapsability with sniff indicates a normal right atrial pressure of 3 mmHg MMode 2D Measurements and Calculations IVSd 0.89 cm LVIDd 5.0 cm LVIDs 3.6 cm LVPWd 0.94 cm IVS/LVPW 0.94 FS 28.4 % EDV(Teich) 117.0 ml ESV(Teich) 53.1 ml EF(Teich) 54.7 % EDV(cubed) 123.4 ml ESV(cubed) 45.2 ml EF(cubed) 63.4 % LV mass(C)d 160.3 grams LV mass(C)dI 85.5 grams/m\S\2 SV(Teich) 64.0 ml SI(Teich) 34.1 ml/m\S\2 SV(cubed) 78.2 ml SI(cubed) 41.7 ml/m\S\2 Ao root diam 3.3 cm Ao root area 8.6 cm\S\2 ACS 2.3 cm LA dimension 3.4 cm asc Aorta Diam 2.5 cm LA/Ao 1.0 LVOT diam 2.4 cm LVOT area 4.4 cm\S\2 LVAd ap4 29.1 cm\S\2 LVLd ap4 8.4 cm EDV(MOD-sp4) 84.4 ml EDV(sp4-el) 86.3 ml LVAs ap4 18.3 cm\S\2 LVLs ap4 7.3 cm ESV(MOD-sp4) 38.7 ml ESV(sp4-el) 39.0 ml EF(MOD-sp4) 54.1 % EF(sp4-el) 54.8 % LVAd ap2 35.9 cm\S\2 LVLd ap2 8.6 cm EDV(MOD-sp2) 123.6 ml EDV(sp2-el) 127.3 ml LVAs ap2 22.5 cm\S\2 LVLs ap2 8.0 cm ESV(MOD-sp2) 54.4 ml ESV(sp2-el) 53.7 ml EF(MOD-sp2) 55.9 % EF(sp2-el) 57.8 % LVLd %diff 2.8 % EDV(MOD-bp) 103.9 ml LVLs %diff 8.8 % ESV(MOD-bp) 47.6 ml EF(MOD-bp) 54.2 % SV(MOD-sp4) 45.7 ml SI(MOD-sp4) 24.3 ml/m\S\2 SV(MOD-sp2) 69.1 ml SI(MOD-sp2) 36.9 ml/m\S\2 SV(MOD-bp) 56.3 ml SI(MOD-bp) 30.0 ml/m\S\2 SV(sp4-el) 47.3 ml SI(sp4-el) 25.2 ml/m\S\2 SV(sp2-el) 73.6 ml SI(sp2-el) 39.2 ml/m\S\2 Doppler Measurements and Calculations MV E max royal 82.5 cm/sec MV A max royal 44.8 cm/sec MV E/A 1.8 MV dec time 0.25 sec Ao V2 max 88.8 cm/sec Ao max PG 3.2 mmHg Ao max PG (full) 1.1 mmHg KENNEDY(V,A) 3.6 cm\S\2 KENNEDY(V,D) 3.6 cm\S\2 LV V1 max PG 2.1 mmHg LV V1 max 72.3 cm/sec PA V2 max 103.5 cm/sec PA max PG 4.3 mmHg PA acc slope 368.3 cm/sec\S\2 PA acc time 0.17 sec PI end-d royal 92.3 cm/sec PA pr(Accel) 1.9 mmHg
[2017-07-29] MEDS: OXYCODONE/ACETAMINOPHEN 5-325 TAB PO PRN ×2 (19:57→23:50)
--- NOTE | 2017-07-29 22:54 | Hospitalist Progress Note ---
Hospitalist Progress Note Date of Service Jul 29, 2017. Subjective Pt evaluation today including: conversation w/ patient Patient admitted after midnight. Chart reviewed and patient was seen and examined. He is having a lot of pain in his bilateral forearms that is only minimally improved with Toradol. He has been afebrile here, but reports having chills and sweats at home prior to admission. He reports he started using IV methamphetamines again recently due to the of his son in April, followed by the more recent of his brother 2 weeks ago. He is now committed to quitting drug use altogether. He has not sought out grief counseling at this time. Patient reports the only reason he came in the hospital is because he began spitting up blood which he now realizes was coming from where he bit his tongue after chewing a gummy bear. He has been dealing with the bilateral forearm abscesses at home, and opened up the right forearm abscess on his own with a sterilized razor blade Patient requests testing for hepatitis and HIV given his history of IV drug abuse. Respiratory: No shortness of breath Cardiovascular: No chest pain Abdomen: No pain Objective Vital Signs Date Time Temp Pulse Resp B/P (MAP) Pulse Ox O2 Delivery O2 Flow Rate FiO2 07/29/17 16:00 Room Air 07/29/17 15:11 36.7 73 18 114/68 (83) 97 Room Air 07/29/17 08:00 Room Air 07/29/17 07:22 36.9 68 20 119/70 (86) 94 Room Air 07/29/17 04:15 36.9 80 18 137/75 97 Room Air 07/29/17 01:30 68 18 104/58 98 Room Air 07/29/17 01:27 74 07/28/17 23:06 92 116/62 94 Room Air Physical Exam General Appearance: WD/WN, no apparent distress Eyes: normal inspection, sclerae normal ENT: hearing grossly normal, + pertinent finding (Tongue with small healing laceration to the left of midline in the anterior third of the tongue, nonbleeding) Neck: trachea midline Respiratory/Chest: lungs clear, normal breath sounds, no respiratory distress, no accessory muscle use Cardiovascular: regular rate, rhythm, no edema, no gallop, no murmur Abdomen: normal bowel sounds, non tender, soft Extremities: no pedal edema, no calf tenderness, + swelling (Bilateral forearms right greater than left with significant edema-right ventral forearm with an open 2 x 2 centimeter wound with amauri purulence draining, and another smaller opening next to it that is draining, with mild erythema; left antecubital fossa with tense area of swelling and erythema that has improved from the marker line, both forearms with significant positive TTP, neurovascularly intact distally to the wounds) Neurologic/Psychiatric: alert, normal mood/affect, oriented x 3 Skin: warm/dry Laboratory Results Last 24 Hours Test 07/28/17 23:00 07/29/17 04:25 07/29/17 04:32 07/29/17 07:50 Urine Color YELLOW Urine Appearance CLEAR Urine pH 5.0 Urine Specific [place] 1.010 Urine Protein NEG Urine Glucose (UA) NEG Urine Ketones NEG Urine Occult Blood NEG Urine Nitrite NEG Urine Bilirubin NEG Urine Urobilinogen NEG Urine Leukocyte Esterase NEG Urine Opiates Screen NEG Urine Methadone, Qualitative NEG Urine Barbiturates NEG Urine Phencyclidine (PCP) Level NEG Ur Amphetamine/Methamphetamine NEG MDMA (Ecstasy) Screen NEG Urine Benzodiazepines Screen NEG Urine Cocaine Metabolite NEG Urine Marijuana (THC) NEG Lactic Acid Level 1.6 mmol/L Sodium Level 139 mmol/L Potassium Level 4.6 mmol/L Chloride Level 107 mmol/L Carbon Dioxide Level 26 mmol/L Anion Gap 6.0 mmol/L Blood Urea Nitrogen 7 mg/dl Creatinine 0.68 mg/dl Est Creatinine Clear Calc Drug Dose 143.5 ml/min Estimated GFR () 139.4 Estimated GFR (Non- 120.3 BUN/Creatinine Ratio 10.1 Random Glucose 95 mg/dl Calcium Level 7.9 mg/dl Magnesium Level 2.2 mg/dl White Blood Count 14.17 K/uL Red Blood Count 3.98 M/uL Hemoglobin 10.4 g/dL Hematocrit 32.4 % Mean Corpuscular Volume 81.4 fL Mean Corpuscular Hemoglobin 26.1 pg Mean Corpuscular Hemoglobin Concent 32.1 g/dl RDW Standard Deviation 42.4 fL RDW Coefficient of Variation 14.2 % Platelet Count 446 K/uL Mean Platelet Volume 8.4 fL Assessment and Plan This patient is a 37 y/o male with a history of IV methamphetamine use. Pt developed abscesses on his antecubital region on the left and on his right forearm over the past 2 weeks at drug injection sites. He apparently drained the abscess on the R forearm himself although this did not have the desired effect. The pt then developed SOB, fevers and began spitting up blood over the past 2 days. He denies a cough and states that he just feels like fluid is building up in the back of his throat which he needs to spit out. Indeed, he was spitting up small amounts of blood at the time of admission, although it was not entirely clear, due to lack of cough, if the source was his lungs. The pt was febrile on arrival to the ER with a temp of 38.1. A CTA was obtained in the ER. A preliminary read describes nonspecific patchy BL densities and no PE. Initial labs are notable for leukocytosis and an elevated lactic acid. On exam, he had a small laceration to the tongue after he bit his tongue which was the source of the blood. 1) Sepsis POA/bilateral forearm abscesses - provided with Dapto and Zosyn in the ER and then switched to Zosyn and vancomycin on admission. Leukocytosis improved from 15-14 overnight, reactive thrombocytosis improved from 535 down to 446. ESR is significantly elevated at 72, lactate was elevated at 3.72 and is now down to 1.6. He was febrile and tachycardic on admission. Most likely source is staph or strep -General surgery consulted and following in case of need for incision and drainage-appreciate consultation -Echocardiogram with EF 55%, no valvular vegetation noted -Check wound culture from openly draining wound on the right forearm -Follow blood cultures -Given no history of diabetes, will narrow antibiotic coverage down to Rocephin and vancomycin -Has not had a tetanus shot in over 10 years-we will give Tdap booster now -If blood cultures turn positive, would need to get CLAUDIO to look for valvular vegetation most likely -Elevate the limbs above the heart-discussed with patient and nursing -Follow CBC, ESR, CRP, CMP 2) tongue laceration-from biting-was the source of the spitting up blood- resolved -Appreciate pulmonology consultation-no further evaluation needed 3) IVDA/methamphetamine use - unlikely to exhibit withdrawal -We can provide Benzodiazepines if needed -Patient consents to testing for HIV and hepatitis 4) Mourning/Grief-he received grief counseling after discharge Prophylaxis-SCDs only at this time in case of need for surgery Disposition-remain on medical floor Full code
[2017-07-29] MEDS ORDERED: DIPHTHERIA/TETANUS/PERTUSSIS 0.5 ML SYR/VIAL IM. ONE (23:15)
[2017-07-29] MEDS: CEFTRIAXONE SOD INJ 1 GM in DEXTROSE 5% ADD-VANTAGE 50ML 50 ML IV SCH (23:53)
[2017-07-30 00:23] VITALS: BP 129/63; PULSE 63; TEMP 36.9; O2SAT 98
[2017-07-30] MEDS: VANCOMYCIN IV 1,250 MG in SODIUM CHLORIDE 0.9% 250ML 250 ML IV SCH ×3 (01:29→16:50)
[2017-07-30] MEDS: OXYCODONE/ACETAMINOPHEN 5-325 TAB PO PRN ×4 (04:14→20:31)
--- NOTE | 2017-07-30 06:41 | Surgery Progress Note ---
Surgery Progress Note Date of Service Jul 30, 2017. Subjective + feeling well, + ambulating, + bowel movement, + flatus, + pain controlled, + diet (Tolerating regular diet.), No nausea, No vomiting Patient developed left arm pain and swelling early this AM - IV infiltrated. His IV was discontinued on his left arm and the limb was elevated. Peripheral IV access was then obtained on his right arm. 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 Left forearm cellulitis improving with slightly less erythema today, still warm/firm. ) Laboratory Results: Results Past 24 Hours Test 07/29/17 07:50 07/30/17 04:44 Range/Units White Blood Count 14.17 4.8-10.8 K/uL Red Blood Count 3.98 4.7-6.1 M/uL Hemoglobin 10.4 14.0-18.0 g/dL Hematocrit 32.4 42-52 % Mean Corpuscular Volume 81.4 80-100 fL Mean Corpuscular Hemoglobin 26.1 25-34 pg Mean Corpuscular Hemoglobin Concent 32.1 32-36 g/dl RDW Standard Deviation 42.4 36.4-46.3 fL RDW Coefficient of Variation 14.2 11.5-14.5 % Platelet Count 446 130-400 K/uL Mean Platelet Volume 8.4 7.4-10.4 fL Microbiology Results 07/30/17 MRSA DNA Surveillance Screen - Final, Complete Specimen Negative for MRSA by DNA Probe 07/30/17 Gram Stain, Received Pending 07/30/17 Wound Culture, Received Pending Assessment & Plan B/L forearm cellulitis Right forearm wound still open with minimal drainage, erythema improving - no drainable fluid. Left forearm cellulitis still warm, firm and erythematous - may be small fluctuance on exam Still no Indication for I&D or debridement at this time. Continue IV antibiotics. Awaiting AM labs. Wound cultures pending. Will continue to follow.
[2017-07-30] MEDS ORDERED: VANCOMYCIN TROUGH ONE (07:30)
[2017-07-30] MEDS: COLLAGENASE OINT 30 GM TUBE EXT SCH ×2 (07:34→20:31)
[2017-07-30 07:36] LABS: BASO % 0.3 %; BASO ABS # 0.04 K/uL (0-0.2); EOS % 2.2 %; EOS ABS # 0.29 K/uL (0-0.5); HEMATOCRIT 32.5 % (42-52); HEMOGLOBIN 10.5 g/dL (14.0-18.0); IG# 0.18 K/uL (0.00-0.02); LYMPH % 25.8 %; LYMPH ABS # 3.43 K/uL (1.2-3.4); MEAN CELL VOLUME 80.8 fL (80-100); MEAN CORPUSCULAR HEMOGLOBIN 26.1 pg (25-34); MEAN CORPUSCULAR HGB CONC 32.3 g/dl (32-36); MEAN PLATELET VOLUME 8.5 fL (7.4-10.4); MONO % 7.4 %; MONO ABS # 0.98 K/uL (0.11-0.59); NEUT % 62.9 %; NEUT ABS # 8.35 K/uL (1.4-6.5); PLATELET COUNT 426 K/uL (130-400); RED CELL DISTRIBUTION WIDTH CV 14.4 % (11.5-14.5); RED CELL DISTRIBUTION WIDTH SD 42.5 fL (36.4-46.3); WHITE BLOOD COUNT 13.27 K/uL (4.8-10.8)
[2017-07-30 07:39] VITALS: BP 109/66; PULSE 61; TEMP 36.5; O2SAT 98
[2017-07-30 08:01] LABS: ALBUMIN 2.7 gm/dl (3.4-5.0); ALT/SGPT 21 U/L (12-78); BLOOD UREA NITROGEN 9 mg/dl (7-18); CALCIUM 9.2 mg/dl (8.5-10.1); CARBON DIOXIDE 30 mmol/L (21-32); CREATININE 0.68 mg/dl (0.60-1.40); GLUCOSE 82 mg/dl (70-99); POTASSIUM 4.1 mmol/L (3.5-5.1); SODIUM 137 mmol/L (136-145)
[2017-07-30 08:06] LABS: ALKALINE PHOSPHATASE 93 U/L (45-117); AST/SGOT 11 U/L (15-37); TOTAL PROTEIN 7.4 gm/dl (6.4-8.2)
[2017-07-30 09:58] LABS: HEP C IGG 13 YRS+OLDER_RFLX NEG (NEG)
[2017-07-30 15:51] VITALS: BP 118/68; PULSE 72; TEMP 37; O2SAT 97
--- NOTE | 2017-07-30 16:29 | DIAGNOSTIC IMAGING REPORT ---
SOFT TISSUE ULTRASOUND OF THE LEFT FOREARM REGION CLINICAL HISTORY: left forearm abscess COMPARISON STUDY: No previous studies for comparison. FINDINGS: There is soft tissue edema. In the region of the left antecubital fossa, there is a 43 x 15 x 48 mm complex collection uterine suspicious for an abscess. There is surrounding hypervascularity. The collection itself appears avascular. IMPRESSION: Complex 48 x 43 x 15 mm collection in the region of the left antecubital fossa, suspicious for an abscess Electronically signed by: Sagar Garza M.D. 07/30/2017 4:28 PM Dictated Date/Time: 07/30/2017 4:26 PM
--- NOTE | 2017-07-30 16:32 | DIAGNOSTIC IMAGING REPORT ---
SOFT TISSUE ULTRASOUND THE RIGHT FOREARM REGION CLINICAL HISTORY: Right forearm access COMPARISON STUDY: None FINDINGS: Ultrasonographic evaluation was performed of the right forearm with attention to a draining wound from apparent IV drug use. There is soft tissue edema. There are no focal fluid collections to indicate an abscess. IMPRESSION: No ultrasonographic evidence of a right forearm abscess Electronically signed by: Sagar Garza M.D. 07/30/2017 4:30 PM Dictated Date/Time: 07/30/2017 4:29 PM
--- NOTE | 2017-07-30 16:35 | Hospitalist Progress Note ---
Hospitalist Progress Note Date of Service Jul 30, 2017. (Glory Luis ., RUTHANN) Subjective Pt evaluation today including: conversation w/ patient, physical exam, chart review, lab review, review of inpatient medication list Voiding: no voiding problems Mr. Marx is feeling ok today, his pain is well controlled. The eyrthema around his abscesses appears to have receded. He denies aches, chills or nausea. ROS Constitutional: no chills, aches, sweats or fever Respiratory: no sob,cough, sputum, or wheezing Cardiac: no chest pain, palpitations, edema, orthopnea or lightheadedness GI: no abdominal pain, nausea, vomiting, diarrhea or constipation : no dysuria or hesitancy Extremities: no joint pain or weakness Skin: no rash All other systems reviewed and negative (Glory Luis CRNP) Medications Medications Administered Medications (Trade) Dose Ordered Sig/Guido Route Start Time Stop Time Status Last Admin Dose Admin Sodium Chloride/ Sodium Chloride 2,000 ml @ 999 mls/hr Q2H1M ONCE IV 07/28/17 21:45 07/28/17 23:45 DC 07/28/17 22:30 999 MLS/HR Piperacillin Sod/ Tazobactam Sod (Zosyn Iv) 4.5 gm NOW STAT IV 07/28/17 21:45 07/28/17 21:51 DC 07/28/17 22:30 4.5 GM Daptomycin 469 mg/ Sodium Chloride 59.38 ml @ 100 mls/hr NOW ONCE IV 07/28/17 21:45 07/28/17 22:20 DC 07/28/17 23:01 100 MLS/HR Ketorolac Tromethamine (Toradol Inj) 30 mg NOW STAT IV 07/28/17 23:56 07/28/17 23:57 DC 07/29/17 00:04 30 MG Acetaminophen (Tylenol Tab) 650 mg Q4H PRN PO 07/29/17 01:00 08/28/17 00:59 07/29/17 02:43 650 MG Vancomycin HCl 1250 mg/Sodium Chloride 275 ml @ 125 mls/hr Q8H IV 07/29/17 08:00 08/05/17 07:59 07/30/17 07:35 125 MLS/HR Piperacillin Sod/ Tazobactam Sod 3.375 gm/Dextrose 115 ml @ 28.75 mls/ hr Q8H IV 07/29/17 04:00 07/29/17 22:50 DC 07/29/17 19:57 28.75 MLS/HR Vancomycin HCl 1500 mg/Sodium Chloride 530 ml @ 200 mls/hr NOW ONCE IV 07/29/17 02:00 07/29/17 04:38 DC 07/29/17 02:47 200 MLS/HR Potassium Chloride/Sodium Chloride 1,000 ml @ 150 mls/hr Q6H40M IV 07/29/17 02:30 07/29/17 15:49 DC 07/29/17 08:39 150 MLS/HR Collagenase (Santyl Oint) 1 appln BID EXT 07/29/17 11:00 08/28/17 10:59 07/30/17 07:34 1 APPLN Diphenhydramine HCl (Benadryl Cap) 25 mg Q4H PRN PO 07/29/17 11:15 08/28/17 11:14 07/30/17 07:35 25 MG Ketorolac Tromethamine (Toradol Inj) 30 mg Q6H PRN IV. 07/29/17 11:15 08/03/17 11:14 07/29/17 17:51 30 MG Oxycodone/ Acetaminophen (Percocet 5-325mg Tab) 2 tab Q4H PRN PO 07/29/17 19:45 08/12/17 19:44 07/30/17 12:29 2 TAB Diphtheria/ Pertussis/Tetanus Vacc (Adacel Inj) 0.5 ml ONCE ONCE IM. 07/29/17 23:15 07/29/17 23:16 DC 07/29/17 23:53 0.5 ML Ceftriaxone Sodium 1 gm/ Dextrose 50 ml @ 100 mls/hr Q24H IV 07/29/17 23:30 08/08/17 23:29 07/29/17 23:53 100 MLS/HR (Glory Luis, RUTHANN) Objective Vital Signs Date Time Temp Pulse Resp B/P (MAP) Pulse Ox O2 Delivery O2 Flow Rate FiO2 07/30/17 15:51 37.0 72 20 118/68 (85) 97 07/30/17 08:00 Room Air 07/30/17 07:39 36.5 61 18 109/66 (80) 98 Room Air 07/30/17 00:23 36.9 63 18 129/63 (85) 98 Room Air 07/30/17 00:00 Room Air (Glory Luis CRNP) Physical Exam Notes: General: no distress Eyes: normal inspection, PERLL Respiratory: chest non tender, clear to auscultation, normal breath sounds, no respiratory distress, no accessory muscle use Cardiac: regular rate and rhythm, no rub or gallop, no murmur, no edema, no jvd GI/: active bowel sounds, no abd pain or tenderness, soft, non distended Extremities: normal range of motion, normal strength, non tender Neuro/Psych: alert and oriented x 3, normal mood and affect Skin: normal color, dry, erythema receding from demarcated area, small amount of yellow drainage from left abscess (Glory Luis CRNP) Laboratory Results Last 24 Hours Test 07/30/17 07:02 White Blood Count 13.27 K/uL Red Blood Count 4.02 M/uL Hemoglobin 10.5 g/dL Hematocrit 32.5 % Mean Corpuscular Volume 80.8 fL Mean Corpuscular Hemoglobin 26.1 pg Mean Corpuscular Hemoglobin Concent 32.3 g/dl Platelet Count 426 K/uL Mean Platelet Volume 8.5 fL Neutrophils (%) (Auto) 62.9 % Lymphocytes (%) (Auto) 25.8 % Monocytes (%) (Auto) 7.4 % Eosinophils (%) (Auto) 2.2 % Basophils (%) (Auto) 0.3 % Neutrophils # (Auto) 8.35 K/uL Lymphocytes # (Auto) 3.43 K/uL Monocytes # (Auto) 0.98 K/uL Eosinophils # (Auto) 0.29 K/uL Basophils # (Auto) 0.04 K/uL RDW Standard Deviation 42.5 fL RDW Coefficient of Variation 14.4 % Immature Granulocyte % (Auto) 1.4 % Immature Granulocyte # (Auto) 0.18 K/uL Erythrocyte Sedimentation Rate 75 mm/hr Sodium Level 137 mmol/L Potassium Level 4.1 mmol/L Chloride Level 102 mmol/L Carbon Dioxide Level 30 mmol/L Anion Gap 6.0 mmol/L Blood Urea Nitrogen 9 mg/dl Creatinine 0.68 mg/dl Est Creatinine Clear Calc Drug Dose 142.6 ml/min Estimated GFR () 139.4 Estimated GFR (Non- 120.3 BUN/Creatinine Ratio 12.6 Random Glucose 82 mg/dl Calcium Level 9.2 mg/dl Total Bilirubin 0.2 mg/dl Direct Bilirubin < 0.1 mg/dl Aspartate Amino Transf (AST/SGOT) 11 U/L Alanine Aminotransferase (ALT/SGPT) 21 U/L Alkaline Phosphatase 93 U/L C-Reactive Protein 5.67 mg/dl Total Protein 7.4 gm/dl Albumin 2.7 gm/dl Hepatitis B Surface Antigen NEG Hepatitis C Antibody NEG HIV (1&2) Ab and P24 Ag, 4th Gener NEG (Glory Luis, RUTHANN) Assessment and Plan This patient is a 37 y/o male with a history of IV methamphetamine use. Pt developed abscesses on his antecubital region on the left and on his right forearm over the past 2 weeks at drug injection sites. He apparently drained the abscess on the R forearm himself although this did not have the desired effect. The pt then developed SOB, fevers and began spitting up blood over the past 2 days. He denies a cough and states that he just feels like fluid is building up in the back of his throat which he needs to spit out. Indeed, he was spitting up small amounts of blood at the time of admission, although it was not entirely clear, due to lack of cough, if the source was his lungs. The pt was febrile on arrival to the ER with a temp of 38.1. A CTA was obtained in the ER. A preliminary read describes nonspecific patchy BL densities and no PE. Initial labs were notable for leukocytosis and an elevated lactic acid. On exam, he had a small laceration to the tongue after he bit his tongue which was the source of the blood. Sepsis POA/bilateral forearm abscesses - White count has receded from 15 to 13, ESR remains elevated at 75, Lactate was 3.72 on admission but trended back down to wnl, initially with reactive thrombocytosis improved from 535 down to 426. He was febrile and tachycardic on admission which has resolved. - Wound culture pending - likely staph or strep - BC ngtd - if anything grows, will need CLAUDIO to check for vegetation -General surgery consulted and following in case of need for incision and drainage -Echocardiogram with EF 55%, no valvular vegetation noted -Given no history of diabetes, will narrow antibiotic coverage down to Rocephin and vancomycin from zosyn and vanco - Tdap booster provided as it had been over a decade since last -Elevate the limbs above the heart-discussed with patient and nursing -Follow CBC, ESR, CRP, CMP - Bilateral arm US pending Tongue laceration-from biting-was the source of the spitting up blood-resolved -Appreciate pulmonology consultation-no further evaluation needed IVDA/methamphetamine use - unlikely to exhibit withdrawal -We can provide Benzodiazepines if needed -Patient consents to testing for HIV and hepatitis - hepatitis pending, HIV negative Mourning/Grief-he received grief counseling after discharge Prophylaxis-SCDs only at this time in case of need for surgery Disposition-remain on medical floor Full code (Glory Luis ., RUTHANN) Reviewed: Pt Seen/Exam by Me (Lana Pritchett MD) 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 Discussed with RUTHANN Luis and agree with findings and plan as documented in the note. Any exceptions or clarifications are listed here: Pt improved, still with pain, swelling is less in right forearm, afebrile. Vitals reviewed NAD, AAOx3 RRR no mgr CTAB no wcr Right forearm with significantly reduced induration and wound with less drainage , erythema much improved, left AC fossa with increasing fluctuance, +TTP, erythema about the same US reviewed-right forearm no abscess, left AC with 4 cm abscess 37 yo male with IVDA here with bilateral forearm abscesses-right side improved on IV abx and already opened and draining, Left AC fossa abscess enlarging and appears appropriate for I&D hopefully tomorrow -will make NPO after midnight tonight in case Surgery agrees and wants to take to OR tomorrow -continue Rocephin, vanco, continue to follow cultures -counseled to repeat HIV and Hepatitis testing in 6 months -Consult Case Management about discharge planning as he will need wound care and packing/dressing changes-he has no car, no job, poor finances, and [place], [place] Documented By: Lana Pritchett (Lana Pritchett MD) Assessment/Plan This patient is a 37 y/o male with a history of IV methamphetamine use. Pt developed abscesses on his antecubital region on the left and on his right forearm over the past 2 weeks at drug injection sites. He apparently drained the abscess on the R forearm himself although this did not have the desired effect. The pt then developed SOB, fevers and began spitting up blood over the past 2 days. He denies a cough and states that he just feels like fluid is building up in the back of his throat which he needs to spit out. Indeed, he was spitting up small amounts of blood at the time of admission, although it was not entirely clear, due to lack of cough, if the source was his lungs. The pt was febrile on arrival to the ER with a temp of 38.1. A CTA was obtained in the ER. A preliminary read describes nonspecific patchy BL densities and no PE. Initial labs are notable for leukocytosis and an elevated lactic acid. On exam, he had a small laceration to the tongue after he bit his tongue which was the source of the blood. 1) Sepsis POA/bilateral forearm abscesses - provided with Dapto and Zosyn in the ER and then switched to Zosyn and vancomycin on admission. Leukocytosis improved from 15-14 overnight, reactive thrombocytosis improved from 535 down to 446. ESR is significantly elevated at 72, lactate was elevated at 3.72 and is now down to 1.6. He was febrile and tachycardic on admission. Most likely source is staph or strep -General surgery consulted and following in case of need for incision and drainage-appreciate consultation -Echocardiogram with EF 55%, no valvular vegetation noted -Check wound culture from openly draining wound on the right forearm -Follow blood cultures -Given no history of diabetes, will narrow antibiotic coverage down to Rocephin and vancomycin -Has not had a tetanus shot in over 10 years-we will give Tdap booster now -If blood cultures turn positive, would need to get CLAUDIO to look for valvular vegetation most likely -Elevate the limbs above the heart-discussed with patient and nursing -Follow CBC, ESR, CRP, CMP 2) tongue laceration-from biting-was the source of the spitting up blood- resolved -Appreciate pulmonology consultation-no further evaluation needed 3) IVDA/methamphetamine use - unlikely to exhibit withdrawal -We can provide Benzodiazepines if needed -Patient consents to testing for HIV and hepatitis 4) Mourning/Grief-he received grief counseling after discharge Prophylaxis-SCDs only at this time in case of need for surgery Disposition-remain on medical floor Full code (Lana Pritchett MD)
[2017-07-30] MEDS: KETOROLAC TROMETHAMINE 30 MG/ML VIAL IV. PRN (16:59)
[2017-07-30 19:57] VITALS: BP 96/55; PULSE 86; TEMP 36.7; O2SAT 95
[2017-07-30] MEDS: CEFTRIAXONE SOD INJ 1 GM in DEXTROSE 5% ADD-VANTAGE 50ML 50 ML IV SCH (23:39)
[2017-07-31] VITALS (9 sets, daily range): BP systolic 106–177; BP diastolic 61–89; PULSE 53–95; TEMP 36.5–36.9; O2SAT 90–99
[2017-07-31] MEDS: KETOROLAC TROMETHAMINE 30 MG/ML VIAL IV. PRN ×3 (00:13→11:53)
[2017-07-31] MEDS: VANCOMYCIN IV 1,250 MG in SODIUM CHLORIDE 0.9% 250ML 250 ML IV SCH ×2 (00:14→07:54)
[2017-07-31 06:03] LABS: HEPATITIS A IGM TC 51813E NON-REACTIVE (NON-REACTIVE); HEPATITIS B CORE IGM TC51854R NON-REACTIVE (NON-REACTIVE)
--- NOTE | 2017-07-31 07:26 | Surgery Progress Note ---
Surgery Progress Note Date of Service Jul 31, 2017. Subjective + feeling well, + bowel movement, + flatus, + pain controlled, + diet (NPO after midnight), No nausea, No vomiting U/S of b/l extremities shows no fluid collection in right forearm, but shows a 48 x 43 x 15 mm fluid collection in the left forearm suspicious for abscess. Objective Vital Signs: Date Time Temp Pulse Resp B/P (MAP) Pulse Ox O2 Delivery O2 Flow Rate FiO2 07/31/17 00:15 36.5 95 16 110/61 (77) 90 Room Air 07/31/17 00:00 95 Room Air 07/30/17 19:57 36.7 86 18 96/55 (69) 95 Room Air 07/30/17 16:00 Room Air 07/30/17 15:51 37.0 72 20 118/68 (85) 97 07/30/17 08:00 Room Air 07/30/17 07:39 36.5 61 18 109/66 (80) 98 Room Air General Appearance: WD/WN, no apparent distress Head: normocephalic, atraumatic Respiratory/Chest: no respiratory distress, no accessory muscle use Extremities: + pertinent finding (Right forearm wound still open with minimal drainage and mild erythema, Left forearm cellulitis unchanged with swelling, erythema,firmness, TTP and mild fluctuance noted) Laboratory Results: Results Past 24 Hours Test 07/31/17 04:44 Range/Units Assessment & Plan B/L forearm cellulitis Right forearm wound unchanged from yesterday, no fluid collection identified on U/S. Left forearm shows 48 x 43 x 15 mm fluid collection suspicious of abscess. Will plan for I&D left forearm abscess with Dr. Barnhart in the OR today. Patient already NPO, Continue IV antibiotics. Please contact with questions or concerns. B/L forearm cellulitis Right forearm wound still open with minimal drainage, erythema improving - no drainable fluid. Left forearm cellulitis still warm, firm and erythematous - may be small fluctuance on exam Still no Indication for I&D or debridement at this time. Continue IV antibiotics. Awaiting AM labs. Wound cultures pending. Will continue to follow.
[2017-07-31] MEDS: COLLAGENASE OINT 30 GM TUBE EXT SCH ×2 (07:55→20:45)
[2017-07-31 08:02] LABS: HEMOGLOBIN 10.6 g/dL (14.0-18.0); MEAN CELL VOLUME 79.8 fL (80-100); MEAN CORPUSCULAR HEMOGLOBIN 26.4 pg (25-34); MEAN CORPUSCULAR HGB CONC 33.1 g/dl (32-36); MEAN PLATELET VOLUME 8.6 fL (7.4-10.4); PLATELET COUNT 424 K/uL (130-400); RED CELL DISTRIBUTION WIDTH CV 14.5 % (11.5-14.5); RED CELL DISTRIBUTION WIDTH SD 41.9 fL (36.4-46.3); WHITE BLOOD COUNT 10.92 K/uL (4.8-10.8)
[2017-07-31 08:52] LABS: CALCIUM 9.3 mg/dl (8.5-10.1); CREATININE 0.69 mg/dl (0.60-1.40)
--- NOTE | 2017-07-31 11:21 | Pharmacy Progress Note ---
Pharmacy Abx Dose Short Note Date of Service Jul 31, 2017. Assessment & Plan Assessment * 37 year old male receiving Vanc/ceftriaxone for treatment of abscess s/p IV drug administration * Pt is to go to OR today for I&D of L forearm abscess. * Arm drainage culture pending * Day #3 of antimicrobial therapy. Plan Vancomycin * Trough level of 26.5 mcg/mL is supratherapeutic * This is unexpected given patients age, renal function, weight * Vanc infusion was interrupted and completed several hours late yesterday morning, which may be contributing to elevated vanc level? * Will reduce dose slightly and re-check level to assess dose adjustment appropriateness * Change Vanc to 1000 mg IV every 8 hours * Goal trough level for SST/abscess: 15 to 20 mcg/mL, pending C/S results * Trough level ordered for: 08/01 prior to the dose due at 1200 Ceftriaxone 1gm IV q24h Pharmacy will continue to follow and will adjust dose/frequency as necessary. Thank you.
--- NOTE | 2017-07-31 12:55 | Hospitalist Progress Note ---
Hospitalist Progress Note Date of Service Jul 31, 2017. (Glory Luis .RUTHANN) Subjective Pt evaluation today including: conversation w/ patient, physical exam, chart review, lab review, review of inpatient medication list Voiding: no voiding problems Mr. Marx is having some pain in his arms 10/21 today. The left arm abscess does appear larger today than yesterday with increased erythema. Plans for OR with general surgery later today ROS Constitutional: no chills, aches, sweats or fever Respiratory: no sob,cough, sputum, or wheezing Cardiac: no chest pain, palpitations, edema, orthopnea or lightheadedness GI: no abdominal pain, nausea, vomiting, diarrhea or constipation : no dysuria or hesitancy Extremities: no joint pain or weakness Skin: see HPI All other systems reviewed and negative (Glory Luis CRNP) Medications Medications Administered Medications (Trade) Dose Ordered Sig/Guido Route Start Time Stop Time Status Last Admin Dose Admin Sodium Chloride/ Sodium Chloride 2,000 ml @ 999 mls/hr Q2H1M ONCE IV 07/28/17 21:45 07/28/17 23:45 DC 07/28/17 22:30 999 MLS/HR Piperacillin Sod/ Tazobactam Sod (Zosyn Iv) 4.5 gm NOW STAT IV 07/28/17 21:45 07/28/17 21:51 DC 07/28/17 22:30 4.5 GM Daptomycin 469 mg/ Sodium Chloride 59.38 ml @ 100 mls/hr NOW ONCE IV 07/28/17 21:45 07/28/17 22:20 DC 07/28/17 23:01 100 MLS/HR Ketorolac Tromethamine (Toradol Inj) 30 mg NOW STAT IV 07/28/17 23:56 07/28/17 23:57 DC 07/29/17 00:04 30 MG Acetaminophen (Tylenol Tab) 650 mg Q4H PRN PO 07/29/17 01:00 08/28/17 00:59 07/29/17 02:43 650 MG Vancomycin HCl 1250 mg/Sodium Chloride 275 ml @ 125 mls/hr Q8H IV 07/29/17 08:00 07/31/17 09:08 DC 07/31/17 07:54 125 MLS/HR Piperacillin Sod/ Tazobactam Sod 3.375 gm/Dextrose 115 ml @ 28.75 mls/ hr Q8H IV 07/29/17 04:00 07/29/17 22:50 DC 07/29/17 19:57 28.75 MLS/HR Vancomycin HCl 1500 mg/Sodium Chloride 530 ml @ 200 mls/hr NOW ONCE IV 07/29/17 02:00 07/29/17 04:38 DC 07/29/17 02:47 200 MLS/HR Potassium Chloride/Sodium Chloride 1,000 ml @ 150 mls/hr Q6H40M IV 07/29/17 02:30 07/29/17 15:49 DC 07/29/17 08:39 150 MLS/HR Collagenase (Santyl Oint) 1 appln BID EXT 07/29/17 11:00 08/28/17 10:59 07/31/17 07:55 1 APPLN Diphenhydramine HCl (Benadryl Cap) 25 mg Q4H PRN PO 07/29/17 11:15 08/28/17 11:14 07/30/17 07:35 25 MG Ketorolac Tromethamine (Toradol Inj) 30 mg Q6H PRN IV. 07/29/17 11:15 08/03/17 11:14 07/31/17 11:53 30 MG Oxycodone/ Acetaminophen (Percocet 5-325mg Tab) 2 tab Q4H PRN PO 07/29/17 19:45 08/12/17 19:44 07/30/17 20:31 2 TAB Diphtheria/ Pertussis/Tetanus Vacc (Adacel Inj) 0.5 ml ONCE ONCE IM. 07/29/17 23:15 07/29/17 23:16 DC 07/29/17 23:53 0.5 ML Ceftriaxone Sodium 1 gm/ Dextrose 50 ml @ 100 mls/hr Q24H IV 07/29/17 23:30 08/08/17 23:29 07/30/17 23:39 100 MLS/HR (Glory Luis, RUTHANN) Objective Vital Signs Date Time Temp Pulse Resp B/P (MAP) Pulse Ox O2 Delivery O2 Flow Rate FiO2 07/31/17 08:00 Room Air 07/31/17 07:24 36.6 53 18 106/63 (77) 99 07/31/17 00:15 36.5 95 16 110/61 (77) 90 Room Air 07/31/17 00:00 95 Room Air 07/30/17 19:57 36.7 86 18 96/55 (69) 95 Room Air 07/30/17 16:00 Room Air 07/30/17 15:51 37.0 72 20 118/68 (85) 97 (Glory Luis CRNP) Physical Exam Notes: General: no distress Eyes: normal inspection, PERLL Respiratory: chest non tender, clear to auscultation, normal breath sounds, no respiratory distress, no accessory muscle use Cardiac: regular rate and rhythm, no rub or gallop, no murmur, no edema, no jvd GI/: active bowel sounds, no abd pain or tenderness, soft, non distended Extremities: normal range of motion, normal strength, non tender Neuro/Psych: alert and oriented x 3, normal mood and affect Skin: normal color, dry, increased erythema/induration left AC, right arm with stable wound (Glory Luis CRNP) Laboratory Results Last 24 Hours Test 07/31/17 07:28 White Blood Count 10.92 K/uL Red Blood Count 4.01 M/uL Hemoglobin 10.6 g/dL Hematocrit 32.0 % Mean Corpuscular Volume 79.8 fL Mean Corpuscular Hemoglobin 26.4 pg Mean Corpuscular Hemoglobin Concent 33.1 g/dl RDW Standard Deviation 41.9 fL RDW Coefficient of Variation 14.5 % Platelet Count 424 K/uL Mean Platelet Volume 8.6 fL Sodium Level 138 mmol/L Potassium Level 4.0 mmol/L Chloride Level 103 mmol/L Carbon Dioxide Level 29 mmol/L Anion Gap 7.0 mmol/L Blood Urea Nitrogen 10 mg/dl Creatinine 0.69 mg/dl Est Creatinine Clear Calc Drug Dose 140.6 ml/min Estimated GFR () 138.6 Estimated GFR (Non- 119.6 BUN/Creatinine Ratio 14.6 Random Glucose 91 mg/dl Calcium Level 9.3 mg/dl Vancomycin Level Trough 26.5 mcg/ml (Glory Luis CRNP) Assessment and Plan This patient is a 37 y/o male with a history of IV methamphetamine use. Pt developed abscesses on his antecubital region on the left and on his right forearm over the past 2 weeks at drug injection sites. He apparently drained the abscess on the R forearm himself although this did not have the desired effect. The pt then developed SOB, fevers and began spitting up blood over the past 2 days. He denied a cough and stated that he just feels like fluid was building up in the back of his throat which he needs to spit out. Indeed, he was spitting up small amounts of blood at the time of admission, although it was not entirely clear, due to lack of cough, if the source was his lungs. The pt was febrile on arrival to the ER with a temp of 38.1. A CTA was obtained in the ER. A preliminary read describes nonspecific patchy BL densities and no PE. Initial labs were notable for leukocytosis and an elevated lactic acid. On exam, he had a small laceration to the tongue after he bit his tongue which was the source of the blood. Sepsis POA/bilateral forearm abscesses - White count has receded from 15 to 13, ESR remains elevated at 75, Lactate was 3.72 on admission but trended back down to wnl, initially with reactive thrombocytosis improved from 535 down to 426. He was febrile and tachycardic on admission which has resolved. - Wound culture pending - likely staph or strep - BC ngtd - if anything grows, will need CLAUDIO to check for vegetation -General surgery consulted and will take patient for incision and drainage in the OR later today -Echocardiogram with EF 55%, no valvular vegetation noted -Given no history of diabetes, will narrow antibiotic coverage down to Rocephin and vancomycin from zosyn and vanco - Tdap booster provided as it had been over a decade since last -Elevate the limbs above the heart-discussed with patient and nursing -Follow CBC, ESR, CRP, CMP - Bilateral arm US pending Tongue laceration-from biting-was the source of the spitting up blood-resolved -Appreciate pulmonology consultation-no further evaluation needed IVDA/methamphetamine use - unlikely to exhibit withdrawal -We can provide Benzodiazepines if needed -Patient consents to testing for HIV and hepatitis - both negative, education on repeat testing in 6 months and dangers of IV drug use provided Mourning/Grief-he received grief counseling after discharge Prophylaxis-SCDs only at this time in case of need for surgery Disposition-remain on medical floor, patient will need assistance in setting up home health as he is on disability in a [place] area with no access to transportation regularly Full code (Glory Luis ., RUTHANN) Reviewed: Pt Seen/Exam by Me (Lana Pritchett MD) 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 Discussed with RUTHANN Luis and agree with findings and plan as documented in the note. Any exceptions or clarifications are listed here: Just returned from his surgery. Feels much better overall and is anxious for discharge tomorrow. Vitals reviewed NAD, AAOx3 RRR no mgr CTAB no wcr Right forearm with significantly reduced induration and wound with less drainage , erythema much improved, left arm with bulky dressing in place not removed immediately postoperative Labs reviewed and leukocytosis is improving 37 yo male with IVDA here with bilateral forearm abscesses-right side improved on IV abx and already opened and draining, Left AC fossa abscess now status post I&D and should improve significantly -continue Abigailn, jared, continue to follow cultures and can likely discharge to home tomorrow on Keflex and doxycycline given his allergy to Bactrim for broad-spectrum coverage as no growth in cultures so far-will need follow-up on left arm abscess culture after discharge -Will need home nursing arranged for wound care -counseled to repeat HIV and Hepatitis testing in 6 months -Consult Case Management about discharge planning as he will need wound care and packing/dressing changes-he has no car, no job, poor finances, and [place] area, 40 min [place] a store if and appreciate their help -Microcytic anemia-check iron studies and Hemoccult stool and needs follow-up with PCP Documented By: Lana Pritchett (Lana Pritchett MD)
--- NOTE | 2017-07-31 17:24 | History & Physical Bridge Note ---
H&P Re-Evaluation Bridge Note: I have examined the patient, reviewed the History & Physical and in the interval since the performance of the History & Physical I have noted the following changes of clinical significance: No changes noted
[2017-07-31] MEDS ORDERED: BACITRACIN 50000 UNIT VIAL ONE (17:48)
[2017-07-31] MEDS ORDERED: MIDAZOLAM HCL 1 MG/ML 2ML VIAL ONE (17:54)
[2017-07-31] MEDS ORDERED: FENTANYL CITRATE INJ 50 MCG/1 ML 2 ML VIAL ONE (17:54)
[2017-07-31] MEDS ORDERED: PROPOFOL IV EMULSION 10 MG/ML 20 ML VIAL IV ONE (17:59)
[2017-07-31] MEDS ORDERED: MEPERIDINE HCL 25 MG/ML CARP IV PRN (18:00)
[2017-07-31] MEDS ORDERED: PHENYLEPHRINE 100MCG/ML 5ML SYR IV PRN (18:00)
[2017-07-31] MEDS ORDERED: HYDROmorphone INJ 2 MG/ML SYR/VIAL IV PRN (18:00)
[2017-07-31] MEDS ORDERED: FENTANYL CITRATE INJ 50 MCG/1 ML 2 ML VIAL IV PRN (18:00)
[2017-07-31] MEDS ORDERED: EpHEDrine SULFATE INJ 50 MG/ML AMP IV PRN (18:00)
[2017-07-31] MEDS ORDERED: FLUMAZENIL 0.1 MG/1 ML 10 ML VIAL IV PRN (18:00)
[2017-07-31] MEDS ORDERED: LABETALOL HCL IV 5 MG/ML 20ML IV PRN (18:00)
[2017-07-31] MEDS ORDERED: NALOXONE HCL 0.4 MG/1 ML VIAL/CARP IV PRN (18:00)
[2017-07-31] MEDS ORDERED: ATROPINE SULFATE 0.1 MG/ML 5ML SYR IV PRN (18:00)
[2017-07-31] MEDS ORDERED: ONDANSETRON INJ 2 MG/ML 2 ML VIAL IV PRN (18:00)
--- NOTE | 2017-07-31 18:14 | [facility] Post Operative Brief Note ---
Immediate Operative Summary Operative Date Jul 31, 2017. Pre-Operative Diagnosis left arm abcess Post-Operative Diagnosis same as pre op Procedure(s) Performed I & D of left arm abcess Surgeon bOey Core Winding Operator Surgeon(s) rina wise Estimated Blood Loss 5 cc Findings Consistent with Post-Op Diagnosis Specimens abcess fluid for C & S Drains None Complication(s) none
--- NOTE | 2017-07-31 18:27 | Anesthesiology Progress Note ---
Anesthesia Post Op Note Date & Time Jul 31, 2017 at 18:27 Vital Signs Pain Intensity: 2 Vital Signs Past 12 Hours Date Time Temp Pulse Resp B/P (MAP) Pulse Ox O2 Delivery O2 Flow Rate FiO2 07/31/17 16:00 Room Air 07/31/17 15:17 36.6 55 18 120/65 (83) 99 Room Air 07/31/17 08:00 Room Air 07/31/17 07:24 36.6 53 18 106/63 (77) 99 Notes Mental Status: alert / awake / arousable, participated in evaluation Pt Amnestic to Procedure: Yes Nausea / Vomiting: adequately controlled Pain: adequately controlled Airway Patency, RR, SpO2: stable & adequate BP & HR: stable & adequate Hydration State: stable & adequate Anesthetic Complications: no major complications apparent
--- NOTE | 2017-07-31 18:50 | [facility] Operative Report ---
Operative Report Operative Date Jul 31, 2017. Pre-Operative Diagnosis Left forearm abscess Post-Operative Diagnosis Left forearm abscess Procedure(s) Performed Left Forearm Abscess Incision and Drainage Surgeon Dr. Barnhart Outdoor Landscape Architect Surgeon(s) Debora Goddard PA-C Estimated Blood Loss 5cc Specimens For Culture: 1. Left forearm abscess - routine - gram stain, aerobic/anaerobic, c+s Drains None Anesthesia Type MAC Complication(s) none Description of Procedure After informed consent was obtained the patient was taken the operating room with the left arm extended. IV sedation was administered by anesthesia titrated to effect. The Left arm was then sterilely prepped and draped in usual fashion. An 11 blade scalpel was used to make a horizontal incision directly over the large palpable abscess. We immediately encountered a large amount of thick yellow pus. Some of the fluid was obtained and sent to the lab for Gram stain culture and sensitivity. We finger fractionated all the purulent fluid and irrigated out thoroughly with sterile irrigation. The wound was then packed with half-inch iodoform packing and a sterile dressing was applied. Patient was awaken and transferred to recovery in stable condition My physician's personalized living assistant was present throughout the entire case. She will prep the patient. Help debride the wound packet and placed the dressings. I attest to the content of the Intraoperative Record and any orders documented therein. Any exceptions are noted below.
[2017-07-31] MEDS: VANCOMYCIN IV 1,000 MG in SODIUM CHLORIDE 0.9% 250ML 250 ML IV SCH (20:45)
[2017-07-31] MEDS: OXYCODONE/ACETAMINOPHEN 5-325 TAB PO PRN (20:46)
[2017-07-31] MEDS: CEFTRIAXONE SOD INJ 1 GM in DEXTROSE 5% ADD-VANTAGE 50ML 50 ML IV SCH (23:28)
[2017-08-01] MEDS: OXYCODONE/ACETAMINOPHEN 5-325 TAB PO PRN ×4 (01:08→13:13)
[2017-08-01] MEDS: VANCOMYCIN IV 1,000 MG in SODIUM CHLORIDE 0.9% 250ML 250 ML IV SCH ×2 (03:53→12:00)
[2017-08-01 06:31] LABS: HEMATOCRIT 30.5 % (42-52); HEMOGLOBIN 9.9 g/dL (14.0-18.0); MEAN CELL VOLUME 80.3 fL (80-100); MEAN CORPUSCULAR HEMOGLOBIN 26.1 pg (25-34); MEAN CORPUSCULAR HGB CONC 32.5 g/dl (32-36); MEAN PLATELET VOLUME 8.9 fL (7.4-10.4); PLATELET COUNT 416 K/uL (130-400); RED CELL DISTRIBUTION WIDTH CV 14.4 % (11.5-14.5); RED CELL DISTRIBUTION WIDTH SD 42.2 fL (36.4-46.3)
[2017-08-01 06:50] VITALS: BP 147/80; PULSE 57; TEMP 36.4; O2SAT 96
[2017-08-01 06:58] LABS: CALCIUM 8.8 mg/dl (8.5-10.1); CREATININE 0.73 mg/dl (0.60-1.40)
[2017-08-01] MEDS: COLLAGENASE OINT 30 GM TUBE EXT SCH (07:42)
--- NOTE | 2017-08-01 11:02 | Anesthesiology Progress Note ---
Anesthesia Post Op Note Date & Time Aug 01, 2017 at 11:02 Vital Signs Pain Intensity: 4.0 Vital Signs Past 12 Hours Date Time Temp Pulse Resp B/P (MAP) Pulse Ox O2 Delivery O2 Flow Rate FiO2 08/01/17 08:33 Room Air 08/01/17 06:50 36.4 57 18 147/80 (102) 96 Room Air 08/01/17 00:00 Room Air Notes Mental Status: alert / awake / arousable, participated in evaluation Pt Amnestic to Procedure: Yes Nausea / Vomiting: adequately controlled Pain: adequately controlled Airway Patency, RR, SpO2: stable & adequate BP & HR: stable & adequate Hydration State: stable & adequate Anesthetic Complications: no major complications apparent
--- NOTE | 2017-08-01 11:09 | Surgery Progress Note ---
Surgery Progress Note Date of Service Aug 01, 2017. Subjective Post OP Day: 1 + feeling well, + ambulating, + pain controlled, No nausea, No vomiting no new concerns or complaints Objective Vital Signs: Date Time Temp Pulse Resp B/P (MAP) Pulse Ox O2 Delivery O2 Flow Rate FiO2 08/01/17 08:33 Room Air 08/01/17 06:50 36.4 57 18 147/80 (102) 96 Room Air 08/01/17 00:00 Room Air 07/31/17 23:00 36.7 63 18 166/66 (99) 98 Room Air 07/31/17 22:00 36.7 59 18 171/63 (99) 95 Room Air 07/31/17 20:55 36.7 58 16 161/89 (113) 98 Room Air 07/31/17 19:41 36.5 69 16 154/84 (107) 96 Room Air 07/31/17 19:04 36.9 65 16 177/67 (103) 98 Room Air 07/31/17 18:50 54 16 140/64 97 Room Air 07/31/17 18:40 37.0 50 15 148/70 97 Room Air 07/31/17 18:30 56 14 151/74 97 Room Air 07/31/17 18:23 36.8 59 16 136/71 93 Room Air 07/31/17 16:00 Room Air 07/31/17 15:17 36.6 55 18 120/65 (83) 99 Room Air General Appearance: WD/WN, no apparent distress Incision(s): findings (left forearm incision- dressing dry and intact- dressing removed, packing removed. New clean packing inserted, gauze dressing applied. Patient tolerated packing removal without incident ) Laboratory Results: Results Past 24 Hours Test 08/01/17 05:46 Range/Units White Blood Count 9.50 4.8-10.8 K/uL Red Blood Count 3.80 4.7-6.1 M/uL Hemoglobin 9.9 14.0-18.0 g/dL Hematocrit 30.5 42-52 % Mean Corpuscular Volume 80.3 80-100 fL Mean Corpuscular Hemoglobin 26.1 25-34 pg Mean Corpuscular Hemoglobin Concent 32.5 32-36 g/dl RDW Standard Deviation 42.2 36.4-46.3 fL RDW Coefficient of Variation 14.4 11.5-14.5 % Platelet Count 416 130-400 K/uL Mean Platelet Volume 8.9 7.4-10.4 fL Sodium Level 138 136-145 mmol/L Potassium Level 4.0 3.5-5.1 mmol/L Chloride Level 103 98-107 mmol/L Carbon Dioxide Level 27 21-32 mmol/L Anion Gap 8.0 3-11 mmol/L Blood Urea Nitrogen 13 7-18 mg/dl Creatinine 0.73 0.60-1.40 mg/dl Est Creatinine Clear Calc Drug Dose 132.9 ml/min Estimated GFR () 135.4 Estimated GFR (Non- 116.8 BUN/Creatinine Ratio 18.3 10-20 Random Glucose 82 70-99 mg/dl Calcium Level 8.8 8.5-10.1 mg/dl Iron Level 51 35-175 mcg/dl Total Iron Binding Capacity 243 250-450 mcg/dl Transferrin 188 200-360 mg/dl Transferrin % Saturation 19 20-50 % Ferritin 121.8 8.0-388.0 ng/ml Microbiology Results 07/31/17 Gram Stain - Final, Resulted 07/31/17 Bacterial Culture, Resulted Pending Assessment & Plan 1 day s/p I & D of left forearm abscess Patient doing well, pain controlled. Dressing intact, dry when removed. Packing changed, new dressing applied. Outpatient antibiotics per hospitalist team. Ok for discharge from surgical perspective. Will provide wound care instructions in discharge instructions.
--- NOTE | 2017-08-01 11:18 | Discharge Instructions ---
Discharge Instructions Date of Service Aug 01, 2017. Admission Reason for Admission: Abscess Of Arm, Right, Hemoptysis, Unspecified Discharge Discharge Diagnosis / Problem: Abscess of Arm, Right, Hemoptysis, Unspecified Discharge Goals Goal(s): Decrease discomfort, Improve function Activity Recommendations Activity Limitations: as noted below Lifting Limitations: gradually increase as tolerated Exercise/Sports Limitations: as tolerated May Resume Sexual Activity: when tolerated Shower/Bathe: no limitations Driving or Machine Use: no limitations . Instructions / Follow-Up Instructions / Follow-Up Wound car instructions: Right Forearm- continue to apply Santyl Ointment to forearm BID, cover with clean gauze dressing. Left Forearm- every other day packing change with 1/4 inch packing, cover with 4x4s and abd gauze then wrap with Kerlix gauze bandage rolls. Patient should continue to pack wound until packing is unable to be placed. Patient should clean each forearm with soap and water. Keep incision dry. Patient should follow-up with Dr. Barnhart or Debora Goddard PA-C in the [facility] Surgery [facility] located at [address] [place] [address] next week. Please call the office at [phone] to make this appointment. Current Hospital Diet Patient's current hospital diet: Regular Diet Discharge Diet Recommended Diet: Regular Diet Procedures Procedures Performed: Left Forearm Abscess Incision and Drainage Pending Studies Studies pending at discharge: no Medical Emergencies . Who to Call and When: Medical Emergencies: If at any time you feel your situation is an emergency, please call 911 immediately. . Non-Emergent Contact Non-Emergency issues call your: Primary Care Provider, Surgeon Call Non-Emergent contact if: temperature is above 101.5, your pain is not controlled, wound has increased drainage, wound has increased redness . "Provider Documentation" section prepared by Debora Goddard. .
[2017-08-01] MEDS ORDERED: VANCOMYCIN TROUGH ONE (11:30)
[2017-08-01] MEDS ORDERED: CLC/300 PO (12:19)
[2017-08-01] MEDS ORDERED: ACET-1256 PO (12:19)
[2017-08-01] MEDS ORDERED: IBUP-1450 PO (12:19)
--- NOTE | 2017-08-01 12:24 | Discharge Instructions ---
Discharge Instructions Date of Service Aug 01, 2017. Admission Reason for Admission: Abscess Of Arm, Right, Hemoptysis, Unspecified Discharge Discharge Diagnosis / Problem: Cellulitis/Abscess bilateral arms Discharge Goals Goal(s): Improve disease control Activity Recommendations Activity Limitations: resume your previous activity see surgical instructions for discharge care . Instructions / Follow-Up Instructions / Follow-Up Please establish and follow up with a primary care provider within about a week. Please follow up with surgery per their discharge instructions Current Hospital Diet Patient's current hospital diet: Regular Diet Discharge Diet Recommended Diet: Regular Diet Procedures Procedures Performed: Left Forearm Abscess Incision and Drainage Pending Studies Studies pending at discharge: yes List of pending studies: wound culture Medical Emergencies . Who to Call and When: Medical Emergencies: If at any time you feel your situation is an emergency, please call 911 immediately. . Non-Emergent Contact Non-Emergency issues call your: Primary Care Provider . . "Provider Documentation" section prepared by Glory Luis. .
[2017-08-01] MEDS ORDERED: NURSING VERBAL MED ORDER ONE (12:30)
--- NOTE | 2017-08-01 12:39 | Discharge Summary ---
Discharge Summary Date of Service Aug 01, 2017. Discharge Summary Admission Date: Jul 29, 2017 at 01:04 Discharge Date: Aug 01, 2017 Discharge Disposition: Home with services Principal Diagnosis: Bilateral arm abscesses Problems/Secondary Diagnoses: tongue laceration, IV drug use, grief Procedures: Operative Report Operative Date Jul 31, 2017. Pre-Operative Diagnosis Left forearm abscess Post-Operative Diagnosis Left forearm abscess Procedure(s) Performed Left Forearm Abscess Incision and Drainage Surgeon Dr. Barnhart Precision Agriculture Technician Surgeon(s) Debora Goddard PA-C Estimated Blood Loss 5cc Specimens For Culture: 1. Left forearm abscess - routine - gram stain, aerobic/anaerobic, c+s Drains None Anesthesia Type MAC Complication(s) none Description of Procedure After informed consent was obtained the patient was taken the operating room with the left arm extended. IV sedation was administered by anesthesia titrated to effect. The Left arm was then sterilely prepped and draped in usual fashion. An 11 blade scalpel was used to make a horizontal incision directly over the large palpable abscess. We immediately encountered a large amount of thick yellow pus. Some of the fluid was obtained and sent to the lab for Gram stain culture and sensitivity. We finger fractionated all the purulent fluid and irrigated out thoroughly with sterile irrigation. The wound was then packed with half-inch iodoform packing and a sterile dressing was applied. Patient was awaken and transferred to recovery in stable condition My physician's information technology assistant was present throughout the entire case. She will prep the patient. Help debride the wound packet and placed the dressings. I attest to the content of the Intraoperative Record and any orders documented therein. Any exceptions are noted below. SOFT TISSUE ULTRASOUND THE RIGHT FOREARM REGION CLINICAL HISTORY: Right forearm access COMPARISON STUDY: None FINDINGS: Ultrasonographic evaluation was performed of the right forearm with attention to a draining wound from apparent IV drug use. There is soft tissue edema. There are no focal fluid collections to indicate an abscess. IMPRESSION: No ultrasonographic evidence of a right forearm abscess Electronically signed by: Sagar Garza M.D. 07/30/2017 4:30 PM SOFT TISSUE ULTRASOUND OF THE LEFT FOREARM REGION CLINICAL HISTORY: left forearm abscess COMPARISON STUDY: No previous studies for comparison. FINDINGS: There is soft tissue edema. In the region of the left antecubital fossa, there is a 43 x 15 x 48 mm complex collection uterine suspicious for an abscess. There is surrounding hypervascularity. The collection itself appears avascular. IMPRESSION: Complex 48 x 43 x 15 mm collection in the region of the left antecubital fossa, suspicious for an abscess CHEST ONE VIEW PORTABLE CLINICAL HISTORY: IVDA. Hemoptysis hemoptysis COMPARISON STUDY: No previous studies for comparison. FINDINGS: The bones soft tissues and hemidiaphragms are normal. The cardiomediastinal silhouette is normal. The lungs are clear. The pulmonary vasculature is normal. IMPRESSION: Negative chest. Electronically signed by: London Palomo M.D. 07/28/2017 10:46 PM (CHEST FOR PE) ANGIO WITH CT DOSE: 340.09 mGy.cm HISTORY: 37 years-old Male with acute hemoptysis with history of IV drug abuse. TECHNIQUE: Multiple CTA images of the chest were obtained after the intravenous administration of 103 ml Optiray 320. Coronal and sagittal MIPS were obtained from the axial data set and were submitted for review. A dose lowering technique was utilized adhering to the principles of ALARA. COMPARISON: Chest radiograph of same day FINDINGS: CTA: Heart is normal in size without pericardial effusion. Thoracic aorta is normal in course and caliber without aneurysm or dissection. Imaged great vessels appear to be patent. The pulmonary arterial tree is opacified to level of the distal segmental branches and demonstrates no focal filling defects to suggest pulmonary thromboembolic disease. CT CHEST: Thyroid is homogeneous. No pathologic adenopathy of the chest identified. There is no pneumothorax or pleural effusion. Minimal dependent subsegmental bibasilar atelectasis. Calcified granulomas are seen within the inferior segment lingula. Central airways are patent. There is minimal right basilar bronchial wall thickening. No acute abnormality of the imaged upper abdomen. Partially imaged low-attenuation within the region of the renal sinus on the left suggests caliectasis or renal sinus cysts. No left perinephric inflammatory stranding. Ill-defined area of low attenuation near the falciform ligament may reflect focal fatty infiltration. Soft tissues are unremarkable. Bones appear intact. IMPRESSION: 1. No acute aortic pathology or evidence of pulmonary thromboembolic disease. 2. Minimal bibasilar bronchial wall thickening suggests bronchitis. No lobar airspace consolidation to suggest pneumonia. 3. No pathologic adenopathy. 4. Partially imaged low-attenuation within the region of the renal sinus on the left suggests caliectasis or renal sinus cysts. Electronically signed by: Manuel Treviño M.D. 07/29/2017 6:58 AM R FOREARM 2 VIEWS ROUTINE CLINICAL HISTORY: IVDA to right arm with infection infection COMPARISON: None. DISCUSSION: The bones and joint spaces appear intact. There is no evidence of fracture, dislocation or bony disease. Mild soft tissue edema IMPRESSION: Mild soft tissue edema. No acute bony abnormality. Electronically signed by: London Palomo M.D. 07/28/2017 10:47 PM Consultations: Dr. Lam from pulmonary Dr. Barnhart from general surgery Medication Reconciliation New Medications: Acetaminophen (Tylenol) 500 Mg Tab 2 TAB PO Q8 for 3 Days, #10 TAB Clindamycin HCl (Clindamycin HCl) 300 Mg Cap 1 CAP PO TID for 7 Days, #21 CAP Ibuprofen (Motrin) 600 Mg Tab 600 MG PO Q6H PRN for Pain for 5 Days, #20 TAB TAKE WITH FOOD Discontinued Medications: Ibuprofen (Advil) 200 Mg Tab 600 MG PO Q6H, TAB Discharge Exam ROS Constitutional: no chills, aches, sweats or fever Respiratory: no sob,cough, sputum, or wheezing Cardiac: no chest pain, palpitations, edema, orthopnea or lightheadedness GI: no abdominal pain, nausea, vomiting, diarrhea or constipation : no dysuria or hesitancy Extremities: 6/10 pain at incision site right arm Skin: no rash All other systems reviewed and negative PE General: no distress Eyes: normal inspection, PERLL Respiratory: chest non tender, clear to auscultation, normal breath sounds, no respiratory distress, no accessory muscle use Cardiac: regular rate and rhythm, no rub or gallop, no murmur, no edema, no jvd GI/: active bowel sounds, no abd pain or tenderness, soft, non distended Extremities: normal range of motion, normal strength, non tender Neuro/Psych: alert and oriented x 3, normal mood and affect Skin: normal color, dry, dressings dry and intact Hospital Course This patient is a 37 y/o male with a history of IV methamphetamine use. Pt developed abscesses on his antecubital region on the left and on his right forearm over the past 2 weeks at drug injection sites. He apparently drained the abscess on the R forearm himself although this did not have the desired effect. The pt then developed SOB, fevers and began spitting up blood over the past 2 days. He denied a cough and stated that he just feels like fluid was building up in the back of his throat which he needs to spit out. He was spitting up small amounts of blood at the time of admission, although it was not entirely clear, due to lack of cough, if the source was his lungs. The pt was febrile on arrival to the ER with a temp of 38.1. A CTA was obtained in the ER. A preliminary read describes nonspecific patchy BL densities and no PE. Initial labs were notable for leukocytosis and an elevated lactic acid. On exam, he had a small laceration to the tongue after he bit his tongue which was the source of the blood. Sepsis POA/bilateral forearm abscesses - White count has receded from 15 to 9.5, ESR remains elevated at 75, Lactate was 3.72 on admission but trended back down to wnl, initially with reactive thrombocytosis improved from 535 down to 416. He was febrile and tachycardic on admission which has resolved. - Wound culture pending - likely staph or strep - BC no growth -General surgery consulted - I & D of the left antecubital abscess 07/31 - irrigated and packed with iodiform -Echocardiogram with EF 55%, no valvular vegetation noted -Given no history of diabetes, narrowed antibiotic coverage down to Rocephin and vancomycin from zosyn and vanco - will dc home with 7 days of clindamycin - Tdap booster provided as it had been over a decade since last -Elevate the limbs above the heart-discussed with patient and nursing - edema improved - patient will discharge with home nursing for care of his wounds - [place] and [place] limited access to transportation Tongue laceration-from biting-was the source of the spitting up blood-resolved -initially consulted pulmonology thinking it was from his lungs - no further evaluation needed IVDA/methamphetamine use - did not exhibit any s/s of withdrawal this stay -Patient consented to testing for HIV and hepatitis - both negative, education on repeat testing in 6 months and dangers of IV drug use provided Mourning/Grief - he should receive grief counseling after discharge Prophylaxis-SCDs only at this time in case of need for surgery Total Time Spent: Greater than 30 minutes This includes examination of the patient, discharge planning, medication reconciliation, and communication with other providers. Discharge Instructions Please refer to the electronic Patient Visit Report (Discharge Instructions) for additional information. Follow-Up Dr. Barnhart in one week PCP in one week
[2017-08-01] MEDS ORDERED: CLINDAMYCIN HCL 150 MG CAP PO ONE (12:45)
[2017-08-01 13:09] VITALS: BP 147/80; PULSE 57; TEMP 36.4; O2SAT 96
--- NOTE | 2017-08-01 13:36 | Pharmacy Progress Note ---
Pharmacy Abx Dose Short Note Date of Service Aug 01, 2017. Assessment & Plan Assessment 37 year old male receiving Vancomycin for treatment of antecubital abscess. Day # 4 of antimicrobial therapy. Plan Vancomycin * Trough level of 19.4 mcg/mL is therapeutic. * Continue dose of 1 gm IV every 8 hours * Goal trough level for SST/abscess : 15 to 20 mcg/mL * No further levels ordered at this time. Pharmacy will continue to follow and will adjust dose/frequency as necessary. Thank you.
== END 2017-08-01 13:41 | disposition home health service (06) | DRG 872 ==
LOC: C.EDB 21:23 → C.MED 07-29 01:04 → ENRESERV 07-29 01:21
PROVIDERS: ADMIT Internal Medicine; ATTEND Family Medicine
PROC: 0J9H0ZX Drainage of Left Lower Arm Subcutaneous Tissue and Fascia, Open Approach, Diagnostic (ICD-10-PCS; principal; 2017-07-31 07:00)
DX: A41.9 Sepsis, unspecified organism (principal); S01.512A Laceration without foreign body of oral cavity, initial encounter; L03.113 Cellulitis of right upper limb; L03.114 Cellulitis of left upper limb; F15.10 Other stimulant abuse, uncomplicated; F43.21 Adjustment disorder with depressed mood; M16.0 Bilateral primary osteoarthritis of hip; Z88.2 Allergy status to sulfonamides; X58.XXXA Exposure to other specified factors, initial encounter; Y92.018 Other place in single-family (private) house as the place of occurrence of the external cause

== ENCOUNTER → 2017-08-08 | Outpatient (CLI) | payer OTHER ==
[~2017-08-08] MED LIST: CLC/300 PO
--- NOTE | 2017-08-08 16:01 | DIAGNOSTIC IMAGING REPORT ---
R EXTREMITY NONVASCULAR LIMITED CLINICAL HISTORY: R FOREARM ABSCESS TECHNIQUE: Ultrasound COMPARISON STUDY: 07/30/2017 FINDINGS: Identical study compared to the prior exam. Subcutaneous edematous change throughout the region of interest. Deep soft tissue show a nonspecific edematous change. A well-defined drainable abscess pocket is not appreciated. IMPRESSION: Identical study compared to the prior exam. Diffuse soft tissue edema. A drainable collection is not appreciated. The above report was generated using voice recognition software. It may contain grammatical, syntax or spelling errors. Electronically signed by: London Palomo M.D. 08/08/2017 4:00 PM Dictated Date/Time: 08/08/2017 3:56 PM
== END | disposition home or self-care (01) ==
LOC: C.ULTR 15:30
PROVIDERS: ATTEND Surgery
DX: L02.413 Cutaneous abscess of right upper limb (principal)